=== PATIENT | male | born 1950 | race Caucasian/White ===

== ENCOUNTER 2018-07-26 15:32 | Outpatient (CLI) | payer OTHER ==
--- NOTE | 2018-07-27 21:18 | MRI Report ---
Reason: PAIN IN LEFT SHOULDER, CERVICALGIA Procedure Date: 07/26/2018 Accession Number: [id number] / [id number] Procedure: MRI - Shoulder LT W/O CPT Code: FULL RESULT: EXAM: LEFT SHOULDER MRI WITHOUT CONTRAST EXAM DATE: 07/26/2018 03:47 PM. CLINICAL HISTORY: Pain in left shoulder, cervicalgia. COMPARISON: None. TECHNIQUE: Limited 3 plane localizing sequence and single axial PD fat saturation sequence only obtained. Patient unable to complete the exam due to pain. FINDINGS: Significantly limited evaluation due to single axial sequence only. Bones: No gross fracture visualized. Joints: At least mild acromioclavicular degenerative change. Shallow cartilage loss at the glenohumeral joint. Small glenohumeral joint effusion. At least degenerative fraying posterior superior labrum. Ill-defined edema in the region of the joint capsule of the axillary recess. Musculature: No gross fatty atrophy. No focal edema. Significantly limited evaluation of the rotator cuff tendons. Edema and likely tearing partially visualized at the distal supraspinatus and infraspinatus tendons. Moderate subscapularis tendinopathy with at least partial-thickness undersurface tearing at the central fibers. Small amount of fluid in the biceps tendon sheath. Other: Subcutaneous soft tissues unremarkable. IMPRESSION: 1. Significantly limited evaluation due to single diagnostic sequence only. Recommend repeat examination with sedation. 2. Moderate subscapularis tendinopathy with at least partial-thickness undersurface tear mid fibers, incompletely evaluated. 3. Suggestion of tendinopathy and tearing at the supraspinatus and infraspinatus tendons, incompletely evaluated. 4. At least degenerative fraying posterior superior labrum, incompletely evaluated. [facility] MUSCULOSKELETAL RADIOLOGY SECTION
== END 2018-07-26 15:33 | disposition home or self-care (01) ==
LOC: DI 15:32
PROVIDERS: ATTEND Nurse Practitioner Family
DX: S46.812A Strain of other muscles, fascia and tendons at shoulder and upper arm level, left arm, initial encounter (principal); M54.2 Cervicalgia

== ENCOUNTER 2019-07-04 16:58 | Emergency (ER) | payer MEDICARE, OTHER ==
--- NOTE | 2019-07-04 17:39 | ED Physician Documentation ---
PD HPI LOWER EXT INJURY - Stated complaint Stated Complaint: LT LEG INJ - Chief complaint Chief Complaint: Ext Problem - History obtained from History obtained from: Patient - History of Present Illness PD HPI LOW EXT INJURY LOCATION: Left Type of injury: Fall Timing - onset: How many days ago (3) Timing - duration: Days (3) Timing - details: Abrupt onset Pain level max: 8 Pain level now: 7 Improved by: Rest, Ice, Immobilization Worsened by: Moving, Palpating Associated symptoms: Swelling. No: Weakness, Numbness, Tingling Recently seen: Clinic (seen in clinic for same.) - Additional information Additional information: 69-year-old male tripped fell and hurt his left ankle 3 days ago. Having continued pain today. He is on Xarelto. Stopped it 2 days ago Review of Systems Constitutional: denies: Fever, Chills GI: denies: Vomiting, Diarrhea Musculoskeletal: denies: Neck pain, Back pain Neurologic: denies: Headache PD PAST MEDICAL HISTORY - Past Medical History Past Medical History: Yes Cardiovascular: Hypertension, High cholesterol, Atrial fibrillation Endocrine/Autoimmune: Type 2 diabetes - Past Surgical History Past Surgical History: Yes Ortho: Knee replacement, Carpal Tunnel surgery - Present Medications Home Medications: Ambulatory Orders Medication Instructions Recorded Confirmed Hydrocodone/Acetaminophen 1 - 2 each PO Q6H PRN #10 tablet 07/04/19 [Hydrocodon-Acetaminophen 5-325] - Allergies Allergies/Adverse Reactions: Allergies Allergy/AdvReac Type Severity Reaction Status Date / Time No Known Drug Allergies Allergy Verified 07/04/19 17:07 - Social History Does the pt smoke?: No Smoking Status: Never smoker Does the pt drink ETOH?: No Does the pt have substance abuse?: No - Immunizations Immunizations are current?: Yes - POLST Patient has POLST: No PD ED PE NORMAL - Vitals Vital signs reviewed: Yes - General General: Alert and oriented X 3, No acute distress - HEENT HEENT: Moist mucous membranes - Derm Derm: Warm and dry - Extremities Extremities: Other (LLE - ecchymosis and swelling to the lateral ankle. NVI. TTP. ) - Neuro Neuro: Alert and oriented X 3 - Psych Psych: Normal mood, Normal affect Results - Vitals Vitals: Vital Signs - 24 hr 07/04/19 07/04/19 17:07 18:57 Temperature 36.5 C Heart Rate 99 95 Respiratory 14 18 Rate Blood Pressure 142/84 H 141/100 H O2 Saturation 95 95 Oxygen O2 Source Room air - Rads (name of study) Left ankle x-ray Radiology: Prelim report reviewed, EMP read contemporaneously, See rad report (No acute bony abnormality) PD MEDICAL DECISION MAKING - ED course Complexity details: reviewed results, re-evaluated patient, considered differential, d/w patient ED course: 69-year-old male presents to the emergency department with left ankle swelling and contusion. Eliel bandage was applied for compression and placed in a postoperative shoe. We will prescribe pain medication for home. Neurovascular intact. No compartment syndrome. Patient counseled regarding signs and symptoms for which I believe and urgent re-evaluation would be necessary. Patient with good understanding of and agreement to plan and is comfortable going home at this time This document was made in part using voice recognition software. While efforts are made to proofread this document, sound alike and grammatical errors may occur. Departure - Departure Disposition: 01 Home, Self Care Clinical Impression: Contusion Qualifiers: Encounter type: initial encounter Contusion area: lower leg Laterality: left Qualified Code(s): S80.12XA - Contusion of left lower leg, initial encounter Condition: Good Instructions: ED Contusion Lower Ext Follow-Up: your,doctor in 1 week [Other] Prescriptions: Hydrocodone/Acetaminophen [Hydrocodon-Acetaminophen 5-325] 1 - 2 each PO Q6H PRN #10 tablet PRN Reason: pain Comments: Return if you worsen. Use the Eliel wrap as needed for compression. You may bear weight as tolerated. Continue to ice and elevate the area whenever possible Discharge Date/Time: 07/04/19 19:05
--- NOTE | 2019-07-04 18:25 | XRAY Report ---
Reason: fall, ankle pain Procedure Date: 07/04/2019 Accession Number: [id number] / [id number] Procedure: XR - Ankle 3 View LT CPT Code: Final Report FULL RESULT: EXAM: LEFT ANKLE RADIOGRAPHY EXAM DATE: 07/04/2019 06:02 PM. CLINICAL HISTORY: Fall, ankle pain. COMPARISON: None. TECHNIQUE: 3 views. FINDINGS: Bones: . No fractures or bone lesions. Prominent plantar heel spur. Joints: Normal. No effusion. No subluxations. The ankle mortise is normally aligned. Soft Tissues: Essential ankle soft tissue swelling. Some vascular calcifications were also seen. Small enthesophyte at the Achilles attachment onto the calcaneus. IMPRESSION: 1. No acute fractures. 2. Extensive soft tissue swelling around the ankle. 3. Significant vascular calcifications also noted. 4. Enthesophyte at the attachment of the Achilles onto the calcaneus. Prominent plantar heel spur. [facility]
[2019-07-04 18:57] VITALS: BP 141/100
[2019-07-04] MEDS ORDERED: HYDROcod/ACET 5/325 Prepack 4 PO STA (19:03)
== END 2019-07-04 19:05 | disposition home or self-care (01) ==
LOC: ED 16:58
DX: S80.12XA Contusion of left lower leg, initial encounter (principal); W01.198A Fall on same level from slipping, tripping and stumbling with subsequent striking against other object, initial encounter; Y93.89 Activity, other specified; I10 Essential (primary) hypertension; E11.9 Type 2 diabetes mellitus without complications
CPT/HCPCS: 99283; 99284

== ENCOUNTER 2019-07-09 14:27 | Outpatient (CLI) | payer MEDICARE, OTHER ==
--- NOTE | 2019-07-09 16:06 | Ultrasound Report ---
Reason: LOCALIZED SWELLING OF LEFT LOWER LEG Procedure Date: 07/09/2019 Accession Number: [id number] / [id number] Procedure: US - Duplex Ext Veins Left CPT Code: Final Report FULL RESULT: EXAM: LEFT LOWER EXTREMITY VENOUS ULTRASOUND EXAM DATE: 07/09/2019 03:40 PM. CLINICAL HISTORY: Left leg swelling. COMPARISON: None. TECHNIQUE: Real-time sonographic vascular imaging was performed by the school psychometrist through the lower extremity utilizing both color-flow and Doppler spectral analysis. Multiple textile machinery sales representative static images were saved for review. FINDINGS: Common Femoral Vein (CFV): Normal. CFV-GSV Junction: Normal. Profunda Femoral Vein (PFV): Normal. Femoral Vein (FV) Prox: Normal. Femoral Vein (FV) Mid: Normal. Femoral Vein (FV) Dist: Normal. Popliteal Vein: Normal. Posterior Tibial Veins: Normal. Peroneal Veins: Normal. Contralateral Side CFV: Normal. Other: None. IMPRESSION: No evidence for deep venous thrombosis. [facility]
--- NOTE | 2019-07-09 23:37 | XRAY Report ---
Reason: LOCALIZED SWELLING OF LEFT LOWER LEG Procedure Date: 07/09/2019 Accession Number: [id number] / [id number] Procedure: XR - Ankle 3 View LT CPT Code: Final Report FULL RESULT: EXAM: LEFT ANKLE RADIOGRAPHY. EXAM DATE: 07/09/2019 04:13 PM. CLINICAL HISTORY: Fell 1 week ago twisting ankle. Pain and swelling. COMPARISON: ANKLE 3 VIEW LT 07/04/2019 5:43 PM. TECHNIQUE: 3 views. FINDINGS: Bones: Normal. No fractures or bone lesions. Joints: Normal. No effusion. No subluxations. The ankle mortise is normally aligned. Soft Tissues: Diffuse soft tissue swelling. IMPRESSION: Normal ankle radiography. [facility]
--- NOTE | 2019-07-09 23:37 | XRAY Report ---
Reason: LOCALIZED SWELLING OF LEFT LOWER LEG Procedure Date: 07/09/2019 Accession Number: [id number] / [id number] Procedure: XR - Foot 3 View LT CPT Code: Final Report FULL RESULT: EXAM: LEFT FOOT RADIOGRAPHY. EXAM DATE: 07/09/2019 04:09 PM. CLINICAL HISTORY: Twisted left ankle in a fall 1 week ago. Pain and swelling. COMPARISON: None. TECHNIQUE: 3 views. FINDINGS: Bones: No traumatic or destructive bone abnormalities. Calcaneal enthesophytes noted. Joints: Normal. No subluxations. Soft Tissues: Soft tissue swelling over the metatarsals. IMPRESSION: No acute bony abnormalities. [facility]
== END 2019-07-09 14:28 | disposition home or self-care (01) ==
LOC: DI 14:27
PROVIDERS: ATTEND Nurse Practitioner Family
DX: M79.89 Other specified soft tissue disorders (principal)

== ENCOUNTER 2020-02-19 13:04 | Outpatient (CLI) | payer MEDICARE, OTHER ==
[2020-02-19 15:33] LABS: ALBUMIN 3.8 g/dL (3.2-5.5); BILIRUBIN,TOTAL 1.2 mg/dL (0.2-1.0); CALCIUM 9.2 mg/dL (8.5-10.3); CREATININE 1.2 mg/dL (0.6-1.2); TOTAL PROTEIN 7.7 g/dL (6.7-8.2); URIC ACID 6.8 mg/dL (2.6-7.2)
--- NOTE | 2020-02-19 16:34 | XRAY Report ---
PROCEDURE: Foot 3 View LT INDICATIONS: PAIN IN TOE OF LEFT FOOT TECHNIQUE: 3 views of the foot were acquired. COMPARISON: None FINDINGS: Bones: There is ill-defined lucency and sclerosis traversing the medial aspect of the proximal portio n of the distal phalanx of the first digit. No suspicious bony lesions. Mild joint space narrowing a nd periarticular osteophyte formation at the tibiotalar, subtalar, talonavicular, navicular cuneiform s, first tarsometatarsal, and interphalangeal joints of the digits. Calcaneal spurring. Soft tissues: No tibiotalar joint effusion. Achilles tendon appears normal. IMPRESSION: 1. Possible subacute fracture of the distal phalanx of the first digit. CT could be performed for fur ther assessment, if clinically indicated. 2. Multifocal osteoarthritis. Reviewed by: Mac Bob MD on 02/19/2020 4:32 PM PDT Approved by: Mac Bob MD on 02/19/2020 4:32 PM PDT Station ID: [id number]
== END 2020-02-19 13:05 | disposition home or self-care (01) ==
LOC: DI.S 13:04
PROVIDERS: ATTEND Physician Assistant
DX: M19.072 Primary osteoarthritis, left ankle and foot (principal)
CPT/HCPCS: 36415; 80053; 84550

== ENCOUNTER 2020-04-11 08:42 | Emergency (ER) | payer OTHER ==
--- NOTE | 2020-04-11 08:50 | ED Physician Documentation ---
PD HPI HEENT - Stated complaint Stated Complaint: MOUTH BLEEDING - History obtained from History obtained from: Patient - History of Present Illness Timing - onset: Today Timing - duration: Hours (1-2) Location: Tooth (sshad tooth extraction 6 days ago and bled mildly after it. Was doing okay and then today had onset bleeding from extraction site, brisk with dripping rate. Called dentist but no one responded to his message. Went to PMD office and then referred him here. 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 and they just referred him here.) Review of Systems Constitutional: denies: Fever, Chills Nose: denies: Rhinorrhea / runny nose, Congestion Throat: denies: Sore throat Respiratory: denies: Cough GI: denies: Abdominal Pain, Nausea, Vomiting Neurologic: denies: Generalized weakness, Near syncope Endocrine: reports: Easy bruising / bleeding PD PAST MEDICAL HISTORY - Past Medical History Cardiovascular: Hypertension, High cholesterol, Atrial fibrillation Endocrine/Autoimmune: Type 2 diabetes - Past Surgical History Past Surgical History: Yes Ortho: Knee replacement, Carpal Tunnel surgery - Present Medications Home Medications: Ambulatory Orders Medication Instructions Recorded Confirmed Hydrocodone/Acetaminophen 1 - 2 each PO Q6H PRN #10 tablet 07/04/19 [Hydrocodon-Acetaminophen 5-325] - Allergies Allergies/Adverse Reactions: Allergies Allergy/AdvReac Type Severity Reaction Status Date / Time No Known Drug Allergies Allergy Verified 04/11/20 08:49 - Social History Does the pt smoke?: No Smoking Status: Never smoker Does the pt drink ETOH?: No Does the pt have substance abuse?: No - Immunizations Immunizations are current?: Yes - POLST Patient has POLST: No PD ED PE NORMAL - Vitals Vital signs reviewed: Yes - General General: Alert and oriented X 3, No acute distress, Well developed/nourished - HEENT HEENT: Atraumatic, Other (blood soaked gauze held in mouth biting down right lower gum. Still with bleeding. ). No: Dentition benign (extraction site right lower premolar with dripping bleeding from the socket despite gauze in the area. ) - Neck Neck: Supple, no meningeal sign, No adenopathy - Cardiac Cardiac: No murmur. No: RRR (irregular with initially fast rate but stlowed to normal rate. BP good. ) - Respiratory Respiratory: Clear bilaterally - Abdomen Abdomen: Soft, Non tender - Derm Derm: Normal color, Warm and dry - Neuro Neuro: Alert and oriented X 3, No motor deficit, Normal speech Results - Vitals Vitals: Vital Signs - 24 hr 04/11/20 04/11/20 08:47 10:30 Temperature 36.6 C 36.6 C Heart Rate 134 H 71 Respiratory 20 18 Rate Blood Pressure 136/104 H 123/93 H O2 Saturation 98 96 Oxygen O2 Source Room air - Labs Labs: Laboratory Tests 04/11/20 09:26 WBC 8.5 RBC 4.65 L Hgb 15.3 Hct 43.7 MCV 94.0 MCH 32.9 H MCHC 35.0 RDW 12.6 Plt Count 202 MPV 9.6 Neut # (Auto) 6.2 Lymph # (Auto) 1.4 L [place] # (Auto) 0.7 Eos # (Auto) 0.1 Baso # (Auto) 0.1 Absolute Nucleated RBC 0.00 Nucleated RBC % 0.0 PD MEDICAL DECISION MAKING - ED course Complexity details: considered differential (injected the socket with lido/epi and then placed cotton balls with TXA in the area (had him bite down with gauze). This stopped the bleeding/ down to minimal oozing. Monsels solution and hand held cautery used to stop the bleeding. ), d/w patient Departure - Departure Disposition: 01 Home, Self Care Clinical Impression: Surgical wound hemorrhage after dental procedure Condition: Stable Record reviewed to determine appropriate education?: Yes Follow-Up: Naman Villegas MD [Primary Care Provider] - Comments: Hold your Xarelto today. Resume it tomorrow if you are not oozing or bleeding still. Periodically keep pressure with gauze or cotton balls onto the extraction site through the day today. Follow-up with your dentist later today for able to see him. There may be some slight oozing this morning and afternoon at times. Return if significant bleeding again or follow-up with your dentist. Discharge Date/Time: 04/11/20 10:47
[2020-04-11] MEDS ORDERED: LIDOCAINE 1%-EPI 1:100000 20 ML MDV SUBQ STA (09:06)
[2020-04-11] MEDS ORDERED: TRANEXAMIC ACID 1,000 MG/10 ML VIAL NAS STA (09:06)
[2020-04-11 09:32] LABS: BASOPHILS # (AUTO) 0.1 10^3/uL (0.0-0.1); BASOPHILS % (AUTO) 0.7 %; EOSINOPHILS # (AUTO) 0.1 10^3/uL (0.0-0.7); EOSINOPHILS % (AUTO) 0.7 %; HGB - HEMOGLOBIN 15.3 g/dL (14.0-18.0); LYMPHOCYTES # (AUTO) 1.4 10^3/uL (1.5-3.5); LYMPHOCYTES % (AUTO) 16.8 %; MEAN CORPUSCULAR HEMOGLOBIN 32.9 pg (27.0-31.0); MEAN PLATELET VOLUME 9.6 fL (7.4-11.4); MONOCYTES # (AUTO) 0.7 10^3/uL (0.0-1.0); NEUTROPHILS # (AUTO) 6.2 10^3/uL (1.5-6.6); NEUTROPHILS % (AUTO) 73.4 %; PLT - PLATELET COUNT 202 10^3/uL (130-450); RED BLOOD COUNT 4.65 10^6/uL (4.70-6.10); RED CELL DISTRIBUTION WIDTH 12.6 % (12.0-15.0); WHITE BLOOD COUNT 8.5 x10^3/uL (4.8-10.8)
[2020-04-11 10:47] VITALS: BP 123/93
== END 2020-04-11 10:47 | disposition home or self-care (01) ==
LOC: ED 08:42
DX: K91.840 Postprocedural hemorrhage of a digestive system organ or structure following a digestive system procedure (principal); Y84.8 Other medical procedures as the cause of abnormal reaction of the patient, or of later complication, without mention of misadventure at the time of the procedure; I10 Essential (primary) hypertension; I48.91 Unspecified atrial fibrillation; E11.9 Type 2 diabetes mellitus without complications; Z79.01 Long term (current) use of anticoagulants
CPT/HCPCS: 36415; 85025; 99282; 99283

== ENCOUNTER 2021-07-28 10:06 | Inpatient (IN) | payer OTHER ==
--- NOTE | 2021-07-28 10:32 | ED Physician Documentation ---
PD HPI DYSPNEA - Stated complaint Stated Complaint: SOA/CONGESTION - Chief complaint Chief Complaint: Resp - History obtained from History obtained from: Patient - Additional information Additional information: 71-year-old gentleman has been sick for about 5 days initially with sinus congestion and sore throat now with productive cough and yellow sputum and worsening shortness of breath now with any exertion at all. He has been COVID vaccinated. His physician called in a prescription for antibiotics for presumed infection yesterday without relief. Per , his edema is worse than usual, but patient says it is chronic. Per it was augmentin yesterday AM. Had negative home covid test 2 days ago. Review of Systems Ten Systems: 10 systems reviewed and negative Constitutional: denies: Fever, Chills Nose: reports: Rhinorrhea / runny nose, Congestion Throat: reports: Sore throat Respiratory: reports: Dyspnea, Cough GI: denies: Abdominal Pain, Nausea, Vomiting PD PAST MEDICAL HISTORY - Past Medical History Cardiovascular: Hypertension, High cholesterol, Atrial fibrillation Endocrine/Autoimmune: Type 2 diabetes - Past Surgical History Past Surgical History: Yes Ortho: Knee replacement, Carpal Tunnel surgery - Present Medications Home Medications: Ambulatory Orders Medication Instructions Recorded Confirmed Hydrocodone/Acetaminophen 1 - 2 each PO Q6H PRN #10 tablet 07/04/19 [Hydrocodon-Acetaminophen 5-325] - Allergies Allergies/Adverse Reactions: Allergies Allergy/AdvReac Type Severity Reaction Status Date / Time No Known Drug Allergies Allergy Verified 07/28/21 10:18 - Social History Does the pt smoke?: No Smoking Status: Never smoker Does the pt drink ETOH?: No Does the pt have substance abuse?: No - Immunizations Immunizations are current?: Yes - POLST Patient has POLST: No PD ED PE NORMAL - Vitals Vital signs reviewed: Yes (Hypoxic, tachypenic) - General General: Alert and oriented X 3, Other (audible rhonchi from a distance, slight labored breathing) - HEENT HEENT: PERRL, EOMI, Pharynx benign - Neck Neck: Supple, no meningeal sign, No bony TTP - Cardiac Cardiac: RRR, No murmur - Respiratory Respiratory: Other (Mild tachypnea, speaking in full sentences. Rhonchorous and wheezy throughout.) - Abdomen Abdomen: Non tender - Back Back: No CVA TTP, No spinal TTP - Derm Derm: Normal color, Warm and dry - Extremities Extremities: Other (Mild pitting pedal edema, symmetric. Patient states this is chronic.) - Neuro Neuro: Alert and oriented X 3, Normal speech - Psych Psych: Normal mood, Normal affect Results - Vitals Vitals: Vital Signs - 24 hr 07/28/21 07/28/21 07/28/21 10:12 10:17 10:47 Temperature 36.4 C L Heart Rate 99 103 H 93 Respiratory 36 H 20 19 Rate Blood Pressure 161/87 H 166/113 H 147/88 H O2 Saturation 81 L 93 94 07/28/21 07/28/21 07/28/21 10:50 11:17 11:30 Temperature Heart Rate 90 78 83 Respiratory 26 H 19 16 Rate Blood Pressure 147/88 H 140/87 H O2 Saturation 97 94 Oxygen O2 Source Nasal cannula Oxygen Flow Rate 6 - EKG (time done) 1108 Rate: Rate (enter#) (89) Rhythm: Atrial fibrillation [place]: Normal QRS: Low voltage Ischemia: Non specific changes - Labs Labs: Laboratory Tests 07/28/21 07/28/21 07/28/21 10:25 10:25 10:25 WBC 11.5 H RBC 4.57 L Hgb 15.3 Hct 43.4 MCV 95.0 H MCH 33.5 H MCHC 35.3 RDW 12.8 Plt Count 219 MPV 9.9 Neut # (Auto) 10.0 H Lymph # (Auto) 0.5 L [place] # (Auto) 1.0 Eos # (Auto) 0.0 Baso # (Auto) 0.0 Absolute Nucleated RBC 0.00 Nucleated RBC % 0.0 VBG pH VBG pCO2 VBG pO2 VBG HCO3 VBG Total CO2 VBG O2 Saturation VBG Base Excess Sodium 128 L Potassium 4.1 Chloride 93 L Carbon Dioxide 21 Anion Gap 14.0 H BUN 17 Creatinine 0.9 Estimated GFR (MDRD) 83 L Glucose 241 H Lactic Acid Calcium 9.0 Phosphorus 2.7 Magnesium 1.5 L Total Bilirubin 1.7 H AST 31 ALT 30 Alkaline Phosphatase 50 Troponin I High Sens 42.6 H* B-Natriuretic Peptide Total Protein 8.3 H Albumin 4.3 Globulin 4.0 Albumin/Globulin Ratio 1.1 Nasal Adenovirus (PCR) Nasal B. parapertussis DNA (PCR) Nasal Coronavir 229E PCR Nasal Coronavir HKU1 PCR Nasal Coronavir NL63 PCR Nasal Coronavir OC43 PCR Nasal Enterovir/Rhinovir PCR Nasal Influenza B PCR Nasal Influenza A PCR Nasal Parainfluen 1 PCR Nasal Parainfluen 2 PCR Nasal Parainfluen 3 PCR Nasal Parainfluen 4 PCR Nasal RSV (PCR) Nasal B.pertussis DNA PCR Nasal C.pneumoniae (PCR) Rajeev Human Metapneumo PCR Nasal M.pneumoniae (PCR) Nasal SARS-CoV-2 (PCR) 07/28/21 07/28/21 07/28/21 10:25 10:25 10:25 WBC RBC Hgb Hct MCV MCH MCHC RDW Plt Count MPV Neut # (Auto) Lymph # (Auto) [place] # (Auto) Eos # (Auto) Baso # (Auto) Absolute Nucleated RBC Nucleated RBC % VBG pH 7.387 VBG pCO2 38.4 L VBG pO2 56.1 H VBG HCO3 22.6 L VBG Total CO2 23.7 L VBG O2 Saturation 89.2 H VBG Base Excess -2.0 Sodium Potassium Chloride Carbon Dioxide Anion Gap BUN Creatinine Estimated GFR (MDRD) Glucose Lactic Acid 2.3 H Calcium Phosphorus Magnesium Total Bilirubin AST ALT Alkaline Phosphatase Troponin I High Sens B-Natriuretic Peptide 308 H Total Protein Albumin Globulin Albumin/Globulin Ratio Nasal Adenovirus (PCR) Nasal B. parapertussis DNA (PCR) Nasal Coronavir 229E PCR Nasal Coronavir HKU1 PCR Nasal Coronavir NL63 PCR Nasal Coronavir OC43 PCR Nasal Enterovir/Rhinovir PCR Nasal Influenza B PCR Nasal Influenza A PCR Nasal Parainfluen 1 PCR Nasal Parainfluen 2 PCR Nasal Parainfluen 3 PCR Nasal Parainfluen 4 PCR Nasal RSV (PCR) Nasal B.pertussis DNA PCR Nasal C.pneumoniae (PCR) Rajeev Human Metapneumo PCR Nasal M.pneumoniae (PCR) Nasal SARS-CoV-2 (PCR) 07/28/21 10:27 WBC RBC Hgb Hct MCV MCH MCHC RDW Plt Count MPV Neut # (Auto) Lymph # (Auto) [place] # (Auto) Eos # (Auto) Baso # (Auto) Absolute Nucleated RBC Nucleated RBC % VBG pH VBG pCO2 VBG pO2 VBG HCO3 VBG Total CO2 VBG O2 Saturation VBG Base Excess Sodium Potassium Chloride Carbon Dioxide Anion Gap BUN Creatinine Estimated GFR (MDRD) Glucose Lactic Acid Calcium Phosphorus Magnesium Total Bilirubin AST ALT Alkaline Phosphatase Troponin I High Sens B-Natriuretic Peptide Total Protein Albumin Globulin Albumin/Globulin Ratio Nasal Adenovirus (PCR) NOT DETECTED Nasal B. parapertussis DNA (PCR) NOT DETECTED Nasal Coronavir 229E PCR NOT DETECTED Nasal Coronavir HKU1 PCR NOT DETECTED Nasal Coronavir NL63 PCR NOT DETECTED Nasal Coronavir OC43 PCR NOT DETECTED Nasal Enterovir/Rhinovir PCR DETECTED A Nasal Influenza B PCR NOT DETECTED Nasal Influenza A PCR NOT DETECTED Nasal Parainfluen 1 PCR NOT DETECTED Nasal Parainfluen 2 PCR NOT DETECTED Nasal Parainfluen 3 PCR NOT DETECTED Nasal Parainfluen 4 PCR NOT DETECTED Nasal RSV (PCR) NOT DETECTED Nasal B.pertussis DNA PCR NOT DETECTED Nasal C.pneumoniae (PCR) NOT DETECTED Rajeev Human Metapneumo PCR NOT DETECTED Nasal M.pneumoniae (PCR) NOT DETECTED Nasal SARS-CoV-2 (PCR) NOT DETECTED PD MEDICAL DECISION MAKING - ED course ED course: 71-year-old gentleman presents with some respiratory distress and profound hypoxemia with sats in the low 80s on room air. His history is consistent with that of a viral syndrome and he is quite rhonchorous here with hypoxemia. He does have some evidence of fluid overload. Found to be positive for rhinovirus here with modest elevation of his white blood cell count and modestly elevated troponin but with no chest pain and also modestly elevated BNP. He was administered IV antibiotics after blood cultures and some IV Lasix. Spoke with Dr. Conklin for admission at 11:49 AM and she requests that we order an echo as the historian research assistant will not be her much longer today. - Critical Care Time(min): 35 Time Includes: Direct patient care, Review records, Reassess patient, Document care, Coordinate care, Medical consult, Family consult for tx dec Data interpretation: Labs, Pulse ox Procedures included in critical care time: Peripheral IV Procedures excluded from critical care time: EKG Departure - Departure Disposition: 66 [facility] DC/Xfer Clinical Impression: New onset a-fib, Congestive heart failure, Pneumonia Condition: Serious Discharge Date/Time: 07/28/21 12:50
[2021-07-28] MEDS ORDERED: IPRATROPIUM/ALBUTEROL 3 ML NEB INH STA (10:34)
[2021-07-28 10:41] LABS: BASOPHILS % (AUTO) 0.3 %; EOSINOPHILS % (AUTO) 0.2 %; HCT - HEMATOCRIT 43.4 % (42.0-52.0); HGB - HEMOGLOBIN 15.3 g/dL (14.0-18.0); LYMPHOCYTES # (AUTO) 0.5 10^3/uL (1.5-3.5); MEAN CORPUSCULAR HEMOGLOBIN 33.5 pg (27.0-31.0); MEAN CORPUSCULAR HGB CONC 35.3 g/dL (32.0-36.0); MEAN PLATELET VOLUME 9.9 fL (7.4-11.4); MONOCYTES % (AUTO) 8.4 %; NEUTROPHILS % (AUTO) 86.7 %; PLT - PLATELET COUNT 219 10^3/uL (130-450); RED BLOOD COUNT 4.57 10^6/uL (4.70-6.10); RED CELL DISTRIBUTION WIDTH 12.8 % (12.0-15.0); WHITE BLOOD COUNT 11.5 x10^3/uL (4.8-10.8)
[2021-07-28 10:49] LABS: VBG HCO3 22.6 mmol/L (23-28); VBG PCO2 38.4 mmHg (41-51); VBG PH 7.387 (7.31-7.41); VBG PO2 56.1 mmHg (25-47); VBG TOTAL CO2 23.7 mmol/L (24-29)
[2021-07-28 10:50] LABS: VBG OXYGEN SATURATION 89.2 % (60-80)
[2021-07-28 10:53] LABS: LACTIC ACID, VENOUS 2.3 mmol/L (0.5-2.2)
[2021-07-28 11:02] LABS: ALBUMIN 4.3 g/dL (3.2-5.5); ALBUMIN/GLOBULIN RATIO 1.1 (1.0-2.2); BILIRUBIN,TOTAL 1.7 mg/dL (0.2-1.0); CREATININE 0.9 mg/dL (0.6-1.2); MAGNESIUM 1.5 mg/dL (1.7-2.8); PHOSPHORUS 2.7 mg/dL (2.5-4.6); POTASSIUM 4.1 mmol/L (3.5-5.0); TOTAL PROTEIN 8.3 g/dL (6.7-8.2)
--- NOTE | 2021-07-28 11:03 | XRAY Report ---
PROCEDURE: Chest 1 View X-Ray INDICATIONS: dyspnea TECHNIQUE: One view of the chest was acquired. COMPARISON: Dyspnea FINDINGS: SUPPORT DEVICES: None. LUNGS/PLEURA: Mildly prominent interstitial markings. No focal consolidation, pleural effusion or spa ce-occupying pneumothorax. MEDIASTINUM: The cardiomediastinal silhouette is within normal limits. BONES/SOFT TISSUES: No acute abnormality. IMPRESSION: 1.Mild pulmonary edema versus chronic interstitial change. Reviewed by: Chris Jernigan MD on 07/28/2021 11:01 AM [facility] Approved by: Chris Jernigan MD on 07/28/2021 11:01 AM [facility] Station ID: [id number]
[2021-07-28 11:33] LABS: B. PARAPERTUSSIS- RESP PCR PAN NOT DETECTED; B. PERTUSSIS- RESP PCR PANEL NOT DETECTED; C. PNEUMONIAE- RESP PCR PANEL NOT DETECTED; CORONAVIRUS 229E-RESP PCR NOT DETECTED; CORONAVIRUS HKU1-RESP PCR NOT DETECTED; CORONAVIRUS NL63-RESP PCR NOT DETECTED; CORONAVIRUS OC43-RESP PCR NOT DETECTED; HUMAN METAPNEUMOVIRUS NOT DETECTED; INFLUENZA A- RESP PCR PANEL NOT DETECTED; INFLUENZA B - RESP PCR PANEL NOT DETECTED; M. PNEUMONIAE- RESP PCR PANEL NOT DETECTED; PARAINFLUENZA VIRUS 1 NOT DETECTED; PARAINFLUENZA VIRUS 2 NOT DETECTED; PARAINFLUENZA VIRUS 3 NOT DETECTED; PARAINFLUENZA VIRUS 4 NOT DETECTED; RHINOVIRUS/ENTEROVIRUS DETECTED; RSV- RESP PCR PANEL NOT DETECTED; SARS-CoV-2 -RESP PCR PANEL NOT DETECTED
[2021-07-28] MEDS ORDERED: cefTRIAXone 2 GM in SODIUM CHLORIDE 0.9% MINIBAG 100 ML IV STA (11:34)
[2021-07-28] MEDS ORDERED: ASPIRIN CHEW 81 MG TABLET PO STA (11:34)
[2021-07-28] MEDS ORDERED: AZITHROMYCIN INJ 500 MG in SODIUM CHLORIDE 0.9% 250 ML IV STA (11:34)
[2021-07-28] MEDS ORDERED: FUROSEMIDE 40 MG/4 ML VIAL IVP STA (11:35)
[2021-07-28] MEDS ORDERED: HYDROcod/ACETAM 5/325 MG TABLET PO PRN (11:54)
[2021-07-28] MEDS ORDERED: ACETAMINOPHEN 325 MG TABLET PO PRN (11:54)
[2021-07-28] MEDS ORDERED: ONDANSETRON 4 MG/2 ML VIAL IVP PRN (11:54)
--- NOTE | 2021-07-28 12:09 | HISTORY & PHYSICAL EXAMINATION ---
Chief Complaint - Chief Complaint Chief Complaint: dyspnea History of Present Illness - Admitted From Admitted From:: Medical floor - History Obtained From Records Reviewed: [facility], and ER notes History obtained from: pt Exam Limitations: now - History of Present Illness HPI Comment/Other: 71-year-old male with A past medical history significant noted for hypertension, hyperlipidemia, atrial fibrillation, diabetes who present ER complain of shortness of breath. Pt report he feel shortness of breath for couple of days. He has been sick with cough and difficult breathing for about one week. Initially he believed he had sinus congestion and sore throat. But he continue to have productive cough and yellowish sputum and worsening shortness of breath. He report he was difficult to walk to bathroom because of shortness of breath. He wanted to see his primary care, he is prescribed antibiotics to treat for his infection. He has been COVID vaccinated three times. He Had negative home covid test 2 days ago. Pt also report orthopnea. he report he was difficult to finish his ECHO study because of laying down at bed. pt report his bilateral leg present significant edema when he sit slight long time. Patient reported he taken Metformin for his diabetic management. Pt Denies fever, chill, chest pain. Patient report he stopped cigarette smoking about 30 years ago, he drink alcohol 1 beer and 4-5 glasses of wine daily. Patient is afebrile, but patient present tachypnea, tachycardia, with 81% oxygen saturation on room air in ER. In routine laboratory testing in ER, patient significantly has WBC 11.5, sodium 128, glucose 241, troponin 43, BNP 308. Chest x-ray review mild pulmonary edema plus chronic interstitial change. Discussed the care goal with the patient, patient hope to have full code. History - Past Medical History Cardiovascular: reports: Hypertension, High cholesterol, Atrial fibrillation Endocrine/Autoimmune: reports: Type 2 diabetes - Past Surgical History Ortho: reports: Knee replacement, Carpal Tunnel surgery - Family & Social History Family History: Mother: , Father: Family History Comment/Other: pt report he is unknown medical hx about his parents Social History Notes: Patient report he stopped cigarette smoking about 30 years ago, he drink alcohol 1 beer and 4-5 glasses of wine daily. - POLST Patient has POLST: No Meds/Allgy - Home Medications Home Medications: Ambulatory Orders Medication Instructions Recorded Confirmed Hydrocodone/Acetaminophen 1 - 2 each PO Q6H PRN #10 tablet 07/04/19 [Hydrocodon-Acetaminophen 5-325] - Allergies Allergies/Adverse Reactions: Allergies Allergy/AdvReac Type Severity Reaction Status Date / Time No Known Drug Allergies Allergy Verified 07/28/21 10:18 Review of Systems - Constitutional Constitutional: denies: Fever, Chills - Eyes Eyes: denies: Pain - Ears, Nose & Throat Ears, Nose & Throat: denies: Ear pain - Cardiovascular Cariovascular: reports: Exertional dyspnea, Decr. exercise tolerance, Orthopnea. denies: Irregular heart rate, Palpitations, Chest pain - Respiratory Respiratory: reports: Cough, Sputum production, Orthopnea, SOB at rest, SOB with exertion - Gastrointestinal Gastrointestinal: denies: Abdominal pain, Diarrhea, Nausea, Vomiting - Musculoskeletal Musculoskeletal: denies: Muscle pain - Integumentary Integumentary: denies: Rash - Neurological Neurological: denies: General weakness, Focal weakness, Headache, Dizziness, Numbness, Seizures, Incoordination, Slurred speech Prior Level of Functionality: full independently at home Exam - Vital Signs Vital Signs: Vital Signs x48h Temp Pulse Resp BP Pulse Ox 07/28/21 12:00 91 24 153/98 H 92 07/28/21 11:30 83 16 140/87 H 94 07/28/21 11:17 78 19 147/88 H 97 07/28/21 10:50 90 26 H 07/28/21 10:47 93 19 147/88 H 94 07/28/21 10:17 103 H 20 166/113 H 93 07/28/21 10:12 36.4 C L 99 36 H 161/87 H 81 L - Physical Exam General Appearance: positive: No acute distress, Alert. negative: Lethargic Eyes Bilateral: positive: Normal inspection, No lid inflammation ENT: positive: ENT inspection nml, No signs of dehydration. negative: Purulent nasal drainage Neck: positive: Nml inspection, Trachea midline. negative: Tracheal deviation Respiratory: positive: Chest non-tender, No respiratory distress. negative: Wheezes, Rales Cardiovascular: positive: Regular rate & rhythm, No murmur. negative: Tachycardia, Bradycardia, Systolic murmur Peripheral Pulses: positive: 2+ Abdomen: positive: Non-tender, Nml bowel sounds, No distention. negative: Tenderness Back: positive: Nml inspection Skin: positive: Color nml, Warm, Dry. negative: Cyanosis Extremities: positive: Non-tender, Full ROM, Pedal edema Neurologic/Psychiatric: positive: Oriented x3, Motor nml, Sensation nml. negative: Weakness, Sensory loss, Facial droop, Slurred/abnml speech, Depressed mood/affect Conclusion/Plan - Problem List (1) CHF exacerbation Conclusion/Plan: pt present significant shortness of breath on exertion, Bilaterally lower extremity edema, significant orthopnea. he is even difficult to finish ECHO study when he was lay down at the bed. ECHO study reveal severe abnormal right pressure with preserved EF. pt likely present diastolic heart failure with acute exacerbation. Pt was already given Lasix at ER and at medical floor, but pt had elevated Lactic acid level. However VBG study show pt had normal PH. At this point we hold Lasix, recheck Lactic acid level, daily weight, cardiac diet, order tele and vital closely monitor pt (2) Elevated lactic acid level Conclusion/Plan: pt had elevated lactic aced level 3.4, and elevated WBC, pt present significant shortness of breath, pt report cough with yellowish sputum. ER was already started antibiotics for pt, we will continue antibiotics for treatment of pneumonia, which is likely the cause of elevated lactic acid. IN VBG study, pt had normal arrange PH. (3) Pneumonia Conclusion/Plan: pt present significant shortness of breath, and report cough with yellowing sputum. Now pt had 95% on 5 liter of O2. lab test show elevated WBC and elevated lactic acid level. pt has negative for Covid 19. we will continue antibiotics treatment, supplement of O2 as needed. Add probiotics. (4) Shortness of breath Conclusion/Plan: This is pt's chief complain. it seems combination of pt's acute CHF exacerbation, pulmonary edema and pneumonia infection. VBG study reveal normal PH, unremarkable now. but pt require to have 5 liter of O2 and has 95% O2 sats. IF pt's shortness of breath worsen or require more supplement O2, we may have ABG study for pt, then followup, continue antibiotics, continue supplement of O2 now, closely vital sign monitor pt. (5) Afib Conclusion/Plan: slight elevated HR at 90-100 arrange at the admission, and pt present slight elevated BP, add low dosage of metoprolol, continue tele monitor and resume home Xarelto. pt report he took Xarelto at home. (6) Alcohol abuse Conclusion/Plan: pt report he drunk one beer and 4-5 glasses of wine daily. he denies hx of alcohol withdrawal. we add and Vitamin B1. we will closely monitor pt. because drunk daily with significant amount of alcohol, consider [facility] protocol monitor pt as well. (7) Diabetes Conclusion/Plan: Patient report he has history of diabetic type II, he take Metformin in the home but no insulin. We will start with sliding scale, glucose check, and hypoglycemia protocol (8) HTN (hypertension) Conclusion/Plan: Stable, we will resume patient's home blood pressure medicine after confirmed by pharmacy (9) Obesity Conclusion/Plan: Patient had a BMI of 46.3. He reported he is working on loss of his weight. Encourage patient safely loss of his weight (10) Elevated troponin Conclusion/Plan: Patient had slightly elevated troponin 43, patient denying chest pain, EKG did not show ischemic change. will Repeat troponin, continue telemetry and vital signs closely monitor patient - Lab Results Fish Bones: 07/28/21 10:25 07/28/21 10:25 Core Measures - Anticipated LOS I expect patient to be DC'd or transferred within 96 hours.: Yes - DVT/VTE - Prophylaxis VTE/DVT Device ordered at admit?: Yes VTE/DVT Prophylaxis med ordered at admit?: Yes
[2021-07-28 13:21] LABS: ESTIMATED AVERAGE GLUCOSE 174 mg/dL (70-100); HEMOGLOBIN A1c% 7.7 % (4.27-6.07)
[2021-07-28] MEDS ORDERED: LORazepam 2 MG/ML VIAL IVP PRN (13:41)
[2021-07-28] MEDS ORDERED: MAGNESIUM SULFATE 2 GRAM 2 GM/50 ML BAG IV ONE (13:44)
[2021-07-28] MEDS ORDERED: FUROSEMIDE 20 MG/2 ML VIAL IVP SCH (14:00)
[2021-07-28] MEDS: THIAMINE 100 MG TABLET PO SCH (14:30)
[2021-07-28] MEDS ORDERED: IPRATROPIUM/ALBUTEROL 3 ML NEB INH PRN (14:37)
[2021-07-28] MEDS ORDERED: ALBUTEROL NEB 2.5 MG/3 ML INH PRN (14:37)
[2021-07-28] MEDS ORDERED: FUROSEMIDE 20 MG/2 ML VIAL IVP ONE (15:00)
[2021-07-28 15:09] LABS: LACTIC ACID, VENOUS 3.4 mmol/L (0.5-2.2)
[2021-07-28] MEDS: SODIUM CHLORIDE FLUSH 0.9% 10 ML SYRINGE IVP SCH (16:06)
[2021-07-28] MEDS: INSULIN ASPART 300 UNIT/3 ML PEN SUBQ SCH ×2 (16:59→21:19)
[2021-07-28] MEDS: SACCHAROMYCES BOULARDII 250 MG CAPSULE PO SCH (17:00)
[2021-07-28] MEDS ORDERED: RIVAROXABAN 15 MG TABLET PO SCH (17:00)
[2021-07-28] MEDS ORDERED: APIXABAN 5 MG TABLET PO SCH (21:00)
[2021-07-28] MEDS: METOPROLOL TARTRATE 25 MG TABLET PO SCH (21:27)
[2021-07-28] MEDS ORDERED: chlordiazePOXIDE 25 MG CAPSULE PO SCH (22:00)
[2021-07-28] MEDS: TEMAZEPAM 15 MG CAPSULE PO PRN (22:39)
[2021-07-28] MEDS: chlordiazePOXIDE 25 MG CAPSULE PO SCH (22:41)
[2021-07-29] MEDS: SODIUM CHLORIDE FLUSH 0.9% 10 ML SYRINGE IVP SCH ×4 (00:11→23:45)
[2021-07-29 05:13] LABS: BASOPHILS % (AUTO) 0.3 %; EOSINOPHILS # (AUTO) 0.1 10^3/uL (0.0-0.7); EOSINOPHILS % (AUTO) 0.9 %; HCT - HEMATOCRIT 40.9 % (42.0-52.0); HGB - HEMOGLOBIN 14.2 g/dL (14.0-18.0); LYMPHOCYTES # (AUTO) 0.8 10^3/uL (1.5-3.5); LYMPHOCYTES % (AUTO) 8.6 %; MEAN CORPUSCULAR HGB CONC 34.7 g/dL (32.0-36.0); MEAN CORPUSCULAR VOLUME 95.1 fL (80.0-94.0); MEAN PLATELET VOLUME 10.1 fL (7.4-11.4); MONOCYTES # (AUTO) 1.1 10^3/uL (0.0-1.0); MONOCYTES % (AUTO) 11.4 %; NEUTROPHILS # (AUTO) 7.7 10^3/uL (1.5-6.6); NEUTROPHILS % (AUTO) 78.5 %; PLT - PLATELET COUNT 211 10^3/uL (130-450); RED CELL DISTRIBUTION WIDTH 12.9 % (12.0-15.0); WHITE BLOOD COUNT 9.8 x10^3/uL (4.8-10.8)
[2021-07-29 05:24] LABS: CALCIUM 8.5 mg/dL (8.5-10.3); CREATININE 0.9 mg/dL (0.6-1.2); MAGNESIUM 1.6 mg/dL (1.7-2.8); POTASSIUM 3.3 mmol/L (3.5-5.0)
[2021-07-29 05:33] LABS: CHOL/HDL RATIO 2.3 (<5.0); CHOLESTEROL 133 mg/dL; HDL CHOLESTEROL 58 mg/dL; LDL CHOLESTEROL,CALCULATED 61 mg/dL; LDL/HDL RATIO 1.1 (<3.6); TRIGLYCERIDES 70 mg/dL; VLDL CHOLESTEROL 14 mg/dL
[2021-07-29] MEDS ORDERED: FUROSEMIDE 20 MG/2 ML VIAL IVP SCH (06:00)
[2021-07-29] MEDS: PANTOPRAZOLE 40 MG TABLET PO SCH (06:20)
[2021-07-29] MEDS: INSULIN ASPART 300 UNIT/3 ML PEN SUBQ SCH ×4 (07:56→20:52)
[2021-07-29] MEDS: SACCHAROMYCES BOULARDII 250 MG CAPSULE PO SCH ×2 (07:57→17:13)
[2021-07-29] MEDS ORDERED: FUROSEMIDE 40 MG/4 ML VIAL IVP SCH (09:00)
[2021-07-29] MEDS ORDERED: cefTRIAXone 1 GM in SODIUM CHLORIDE 0.9% MINIBAG 100 ML IV SCH (09:00)
[2021-07-29] MEDS ORDERED: cefTRIAXone 2 GM in SODIUM CHLORIDE 0.9% MINIBAG 100 ML IV SCH (09:00)
[2021-07-29] MEDS: PRENATAL VITAMIN TABLET PO SCH (09:23)
[2021-07-29] MEDS: THIAMINE 100 MG TABLET PO SCH (09:23)
[2021-07-29] MEDS: METOPROLOL TARTRATE 25 MG TABLET PO SCH ×2 (09:23→20:10)
[2021-07-29] MEDS: AZITHROMYCIN INJ 500 MG in SODIUM CHLORIDE 0.9% 250 ML IV SCH (09:25)
[2021-07-29] MEDS: SODIUM CHLORIDE FLUSH 0.9% 10 ML SYRINGE IVP PRN (09:26)
[2021-07-29] MEDS: chlordiazePOXIDE 25 MG CAPSULE PO SCH ×2 (10:16→21:02)
[2021-07-29] MEDS: cefTRIAXone 2 GM in SODIUM CHLORIDE 0.9% MINIBAG 100 ML IV SCH (11:00)
[2021-07-29] MEDS: guaiFENesin 600 MG TABLET PO SCH ×2 (11:48→20:10)
[2021-07-29] MEDS ORDERED: POTASSIUM CHLORIDE 20 MEQ TABLET PO ONE (14:06)
--- NOTE | 2021-07-29 14:46 | PROVIDER PROGRESS NOTE ---
Assessment/Plan - Problem List (1) Acute diastolic (congestive) heart failure Assessment/Plan: Patient presented to the hospital on 07/28/21 with dyspnea after one week of cold like symptoms including a cough and congestion. In the ED his bedside oxygen saturation was 81% on room air. He was then place on 5L/min nasal canula and bedside oxygenation saturation improved to mid 90s. Chest x-ray showed " mild pulmonary edema versus chronic interstitial changes". Echo on 07/28/21 showed " mild left ventricle hypertorphy with EF 55-65%. Unable to determine diastolic function due to arrhythmia. Right ventricle enlargement, severe increased in left atrial volume index, and severe right atrial enlargement". There is no previous echo for comparison. These findings are consistent with diastolic left ventricular heart failure. Yesterday lasix was held due to elevated lactic acid. Today his lactic acid is 1.5 and BNP is down to 250 from 308 on admission. He has ronchi throughout with a strong productive cough and green/ yellow sputum. He reports continued dyspnea with activity. There is 2+ pitting edema to bilateral feet up to his knees. Plan: Start lasix 20mg IVP twice daily. Continue cardiac diet. Continue to monitor with telemetry. Continue to titrate oxygenation. (2) Cor pulmonale Assessment/Plan: Cardiac echo on 07/28/21 showed "Right ventricle enlargement and severe right atrial enlargement. Mild to moderate tricuspid regurgitation. Severe abnormal right heart pressure." The calculated PA pressure is 65mmHg. which is consistent with Cor Pulmonale. There is no previous echo for comparison. Plan: Start lasix 20mg IVP twice daily. Continue cardiac diet. Continue to monitor with telemetry. (3) Acute bronchitis Assessment/Plan: Patient presented to the hospital on 07/28/21 after 1 week of cold like symptoms that included a cough and congestion. Upon admission PCR was positive for Rhinovirus. He continues to have intermittent productive cough with green/ yellow secretions. Breaths sounds have bilateral ronchi. He is on nasal cannula at 5L/min with bedside oxygenation saturation mid 90s. 07/28/21 chest x-ray showed pulmonary edema. Plan: Continue oxygen therapy and titrate to keep oxygen saturations > 92%. Start Mucinex at 600mg PO twice daily and encourage PO hydration. (4) Afib Assessment/Plan: Patient has a history of A-fib. Upon admission to the hospital his heart rate was 90-100 in a-fib. He is unsure of home medication doses but confident that he takes Xarelto for A-fib. Metoprolol 25mg PO twice daily started on 07/28/21. Today he continues to be in afib with HR 80s. Plan: Continue Metoprolol 25mg PO twice daily. Start Eliquis 5mg PO nightly due to limited hospital availability of Xarelto. (5) Alcohol abuse Assessment/Plan: Patient has a history of alcohol abuse and reported drinking 1 beer and 5 glasses of wine daily. He denies pervious episodes of alcohol withdrawal. CIWA scores have remained 0 during hospitalization. Librium 25mg PO twice daily is ordered but patient is refusing. Plan: Continue to monitor for alcohol withdrawal for 72 hours with CIWA scoring. Continue with Thiamine and multivitamin. Consider adding prn Ativan if patient is showing signs of alcohol withdrawal. (6) Diabetes Assessment/Plan: Patient has a history of Type II DM and takes Metformin. Admission glucose was 205 with A1c 7.7. Plan: Monitor glucose before each meal and at bedtime. Continue sliding scale insulin for hyperglycemia. Continue cardiac carb control diet. (7) Hypokalemia Assessment/Plan: Patient is hypokalemic today with serum potassium of 3.3. Upon admission to the hospital his serum potassium was 4.1. Plan: Potassium Chloride 40mEQ PO x1 now. BMP to monitor trend and treat as needed. (8) Elevated troponin Assessment/Plan: Patient had elevated troponin on admission at 42.6 with a repeat troponin 44.6. He denies chest pain. EKG dose not show ischemic changes. Plan: Continue to monitor for ischemic changes with telemetry. (9) HTN (hypertension) Assessment/Plan: Patient has history of hypertension and unsure of his home medications. He knows that he takes Lisinopril but unsure of the dose. Pharmacy was contacted who stated that patient uses [facility] mail order for prescriptions and will be unable to confirm with provider until Saturday. He was started on Metoprolol 25mg PO twice daily for A-fib yesterday. Today his systolic blood pressure ranges 130s-160s. Plan: Resume home hypertension medication after it has been confirmed by pharmacy. Consider resuming Lisinopril at titrate as needed if hypertension uncontrolled. (10) Obesity Assessment/Plan: Patient has a an elevated BMI of 46. He reported to pervious provider that he is working on loosing weight. Plan: Encourage activity when dyspnea improves. Continue Carb Controlled diet. Dietitian consult to discuss healthy eating strategies. - Current Meds Current Meds: Current Medications Generic Name Dose Route Start Last Admin Trade Name Freq PRN Reason Stop Dose Admin Chlordiazepoxide HCl 25 mg 07/28/21 22:00 07/29/21 10:16 Chlordiazepoxide 25 Mg Capsule PO Not Given Q12H ARJUN Furosemide 40 mg 07/29/21 09:00 07/29/21 09:24 Furosemide 40 Mg/4 Ml Vial IVP 40 mg DAILY ARJUN Administration Guaifenesin 600 mg 07/29/21 12:00 07/29/21 11:48 Guaifenesin 600 Mg Tablet PO 600 mg BID ARJUN Administration Azithromycin 500 mg/ Sodium 250 mls @ 250 mls/hr 07/29/21 09:00 07/29/21 10:45 Chloride IV Infused DAILY ARJUN Infusion Ceftriaxone Sodium 2 gm/ 100 mls @ 200 mls/hr 07/29/21 10:00 07/29/21 11:40 Sodium Chloride IV Infused DAILY ARJUN Infusion Insulin Aspart 2 - 10 unit 07/28/21 17:00 07/29/21 11:46 Insulin Aspart 300 Unit/3 Ml Pen SUBQ 4 unit 0800,1200,1700,2100 ARJUN Administration Protocol Metoprolol Tartrate 25 mg 07/28/21 21:00 07/29/21 09:23 Metoprolol Tartrate 25 Mg Tablet PO 25 mg BID ARJUN Administration Pantoprazole Sodium 40 mg 07/29/21 07:00 07/29/21 06:20 Pantoprazole 40 Mg Tablet PO 40 mg QDAC ARJUN Administration Multivit/Folic Acid/Iron 1 tab 07/29/21 09:00 07/29/21 09:23 Vitamin Tablet PO 1 tab DAILY ARJUN Administration Saccharomyces Boulardii 250 mg 07/28/21 17:00 07/29/21 07:57 Saccharomyces Boulardii 250 Mg Capsule PO 250 mg BIDWM ARJUN Administration Sodium Chloride 10 ml 07/28/21 11:54 07/29/21 09:26 Sodium Chloride Flush 0.9% 10 Ml Syringe IVP 10 ml PRN PRN Administration NEEDED PER PROVIDER ORDERS Sodium Chloride 10 ml 07/28/21 17:00 07/29/21 08:04 Sodium Chloride Flush 0.9% 10 Ml Syringe IVP 10 ml 0100,0900,1700 ARJUN Administration Temazepam 15 mg 07/28/21 13:40 07/28/21 22:39 Temazepam 15 Mg Capsule PO 15 mg QPM PRN Administration Insomnia Thiamine HCl 100 mg 07/28/21 13:42 07/29/21 09:23 Thiamine 100 Mg Tablet PO 100 mg DAILY ARJUN Administration - Lab Result Fish Bone Diagrams: 07/29/21 04:39 07/29/21 04:39 - Additional Planning Condition/Complexity: Guarded Subjective - Subjective Patient Reports: Feeling Better (Reprots feeling "slightly better".), Shortness of Breath (Patient reports dyspnea with activity.), Other (Patient was sitting in chair eating breakfast.) Objective Vital Signs: Vital Signs - 24 hr 07/28/21 07/28/21 07/28/21 16:05 19:23 21:00 Temperature 36.7 C 36.7 C Heart Rate 96 Heart Rate [ 95 Brachial] Heart Rate [ 86 Monitoring electrodes] Heart Rate [ Radial] Respiratory 24 18 25 H Rate Blood Pressure Blood Pressure 119/74 135/87 H [Left Brachial artery] Blood Pressure [Left Radial artery] Blood Pressure [Right Brachial artery] O2 Saturation 92 95 94 07/28/21 07/29/21 07/29/21 21:27 00:08 05:43 Temperature 36.4 C L 36.6 C Heart Rate Heart Rate [ 74 Brachial] Heart Rate [ Monitoring electrodes] Heart Rate [ 50 L Radial] Respiratory 25 H 22 Rate Blood Pressure 135/87 H Blood Pressure [Left Brachial artery] Blood Pressure 142/75 H [Left Radial artery] Blood Pressure 132/85 H [Right Brachial artery] O2 Saturation 90 L 96 07/29/21 07/29/21 07/29/21 07:45 08:00 09:23 Temperature 36.6 C Heart Rate Heart Rate [ Brachial] Heart Rate [ Monitoring electrodes] Heart Rate [ Radial] Respiratory 20 Rate Blood Pressure 150/90 H Blood Pressure 150/90 H [Left Brachial artery] Blood Pressure [Left Radial artery] Blood Pressure [Right Brachial artery] O2 Saturation 95 96 07/29/21 14:15 Temperature 36.6 C Heart Rate Heart Rate [ Brachial] Heart Rate [ 89 Monitoring electrodes] Heart Rate [ Radial] Respiratory 20 Rate Blood Pressure Blood Pressure 144/85 H [Left Brachial artery] Blood Pressure [Left Radial artery] Blood Pressure [Right Brachial artery] O2 Saturation 94 Oxygen O2 Source Room air Oxygen Flow Rate 6 I&O (Last 24 Hrs): Intake and Output Totals x24h 07/27/21 07/28/21 07/29/21 23:59 23:59 23:59 Intake Total 1440 1230 Output Total 1305 1625 Balance 135 -395 General: Alert, Oriented x3, Cooperative Neuro: Alert, Oriented Times 3 Cardiovascular: Other (Regularly irregular.) Respiratory: Chest non-tender, No respiratory distress, Rhonchi, Other (Frequent productive cough) Abdomen: Normal bowel sounds, No tenderness Extremities: Other (2+ pedal edema up to bilateral knees) Skin: No rashes - Results Results: Laboratory Results WBC 9.8 x10^3/uL (4.8-10.8) 07/29/21 04:39 RBC 4.30 10^6/uL (4.70-6.10) L 07/29/21 04:39 Hgb 14.2 g/dL (14.0-18.0) 07/29/21 04:39 Hct 40.9 % (42.0-52.0) L 07/29/21 04:39 MCV 95.1 fL (80.0-94.0) H 07/29/21 04:39 MCH 33.0 pg (27.0-31.0) H 07/29/21 04:39 MCHC 34.7 g/dL (32.0-36.0) 07/29/21 04:39 RDW 12.9 % (12.0-15.0) 07/29/21 04:39 Plt Count 211 10^3/uL (130-450) 07/29/21 04:39 MPV 10.1 fL (7.4-11.4) 07/29/21 04:39 Neut # (Auto) 7.7 10^3/uL (1.5-6.6) H 07/29/21 04:39 Lymph # (Auto) 0.8 10^3/uL (1.5-3.5) L 07/29/21 04:39 [place] # (Auto) 1.1 10^3/uL (0.0-1.0) H 07/29/21 04:39 Eos # (Auto) 0.1 10^3/uL (0.0-0.7) 07/29/21 04:39 Baso # (Auto) 0.0 10^3/uL (0.0-0.1) 07/29/21 04:39 Absolute Nucleated RBC 0.00 x10^3/uL 07/29/21 04:39 Nucleated RBC % 0.0 /100WBC 07/29/21 04:39 VBG pH 7.387 (7.31-7.41) 07/28/21 10:25 VBG pCO2 38.4 mmHg (41-51) L 07/28/21 10:25 VBG pO2 56.1 mmHg (25-47) H 07/28/21 10:25 VBG HCO3 22.6 mmol/L (23-28) L 07/28/21 10:25 VBG Total CO2 23.7 mmol/L (24-29) L 07/28/21 10:25 VBG O2 Saturation 89.2 % (60-80) H 07/28/21 10:25 VBG Base Excess -2.0 mmol/L (-2 - +2) 07/28/21 10:25 Sodium 131 mmol/L (135-145) L 07/29/21 04:39 Potassium 3.3 mmol/L (3.5-5.0) L 07/29/21 04:39 Chloride 95 mmol/L (101-111) L 07/29/21 04:39 Carbon Dioxide 24 mmol/L (21-32) 07/29/21 04:39 Anion Gap 12.0 (6-13) 07/29/21 04:39 BUN 18 mg/dL (6-20) 07/29/21 04:39 Creatinine 0.9 mg/dL (0.6-1.2) 07/29/21 04:39 Estimated GFR (MDRD) 83 (>89) L 07/29/21 04:39 Glucose 169 mg/dL (70-100) H 07/29/21 04:39 POC Whole Bld Glucose 187 mg/dL (70 - 100) H 07/29/21 11:13 Estimat Average Glucose 174 mg/dL (70-100) H 07/28/21 12:18 Hemoglobin A1c % 7.7 % (4.27-6.07) H 07/28/21 12:18 Lactic Acid 1.6 mmol/L (0.5-2.2) 07/28/21 19:10 Calcium 8.5 mg/dL (8.5-10.3) 07/29/21 04:39 Phosphorus 2.7 mg/dL (2.5-4.6) 07/28/21 10:25 Magnesium 1.6 mg/dL (1.7-2.8) L 07/29/21 04:39 Total Bilirubin 1.7 mg/dL (0.2-1.0) H 07/28/21 10:25 AST 31 IU/L (10-42) 07/28/21 10:25 ALT 30 IU/L (10-60) 07/28/21 10:25 Alkaline Phosphatase 50 IU/L (42-121) 07/28/21 10:25 Troponin I High Sens 44.2 ng/L (2.3-19.7) H* 07/28/21 16:06 B-Natriuretic Peptide 250 pg/mL (5-100) H 07/29/21 04:39 Total Protein 8.3 g/dL (6.7-8.2) H 07/28/21 10:25 Albumin 4.3 g/dL (3.2-5.5) 07/28/21 10:25 Globulin 4.0 g/dL (2.1-4.2) 07/28/21 10:25 Albumin/Globulin Ratio 1.1 (1.0-2.2) 07/28/21 10:25 Triglycerides 70 mg/dL (-149) 07/29/21 04:39 Cholesterol 133 mg/dL (-199) 07/29/21 04:39 LDL Cholesterol, Calc 61 mg/dL (-129) 07/29/21 04:39 VLDL Cholesterol 14 mg/dL 07/29/21 04:39 HDL Cholesterol 58 mg/dL (60-) L 07/29/21 04:39 LDL/HDL Ratio 1.1 (<3.6) 07/29/21 04:39 Cholesterol/HDL Ratio 2.3 (<5.0) 07/29/21 04:39 Nasal Adenovirus (PCR) NOT DETECTED 07/28/21 10:27 Nasal B. parapertussis DNA (PCR) NOT DETECTED 07/28/21 10:27 Nasal Coronavir 229E PCR NOT DETECTED 07/28/21 10:27 Nasal Coronavir HKU1 PCR NOT DETECTED 07/28/21 10:27 Nasal Coronavir NL63 PCR NOT DETECTED 07/28/21 10:27 Nasal Coronavir OC43 PCR NOT DETECTED 07/28/21 10:27 Nasal Enterovir/Rhinovir PCR DETECTED A 07/28/21 10:27 Nasal Influenza B PCR NOT DETECTED 07/28/21 10:27 Nasal Influenza A PCR NOT DETECTED 07/28/21 10:27 Nasal Parainfluen 1 PCR NOT DETECTED 07/28/21 10:27 Nasal Parainfluen 2 PCR NOT DETECTED 07/28/21 10:27 Nasal Parainfluen 3 PCR NOT DETECTED 07/28/21 10:27 Nasal Parainfluen 4 PCR NOT DETECTED 07/28/21 10:27 Nasal RSV (PCR) NOT DETECTED 07/28/21 10:27 Nasal B.pertussis DNA PCR NOT DETECTED 07/28/21 10:27 Nasal C.pneumoniae (PCR) NOT DETECTED 07/28/21 10:27 Rajeev Human Metapneumo PCR NOT DETECTED 07/28/21 10:27 Nasal M.pneumoniae (PCR) NOT DETECTED 07/28/21 10:27 Nasal SARS-CoV-2 (PCR) NOT DETECTED 07/28/21 10:27 ABX Reporting Has patient been on IV antibiotics over the past 48 hours?: No
[2021-07-29] MEDS: FUROSEMIDE 20 MG/2 ML VIAL IVP SCH (15:50)
[2021-07-29] MEDS: TEMAZEPAM 15 MG CAPSULE PO PRN (20:10)
[2021-07-29] MEDS: APIXABAN 5 MG TABLET PO SCH (20:10)
[2021-07-29] MEDS ORDERED: guaiFENesin 600 MG TABLET PO SCH (21:00)
[2021-07-29] MEDS ORDERED: guaiFENesin/DEXTROMETHORPHAN 10 ML UDC PO PRN (21:37)
[2021-07-30 05:09] LABS: BASOPHILS % (AUTO) 0.5 %; EOSINOPHILS # (AUTO) 0.2 10^3/uL (0.0-0.7); HCT - HEMATOCRIT 40.9 % (42.0-52.0); HGB - HEMOGLOBIN 14.2 g/dL (14.0-18.0); LYMPHOCYTES % (AUTO) 12.5 %; MEAN CORPUSCULAR HEMOGLOBIN 33.1 pg (27.0-31.0); MEAN CORPUSCULAR HGB CONC 34.7 g/dL (32.0-36.0); MEAN CORPUSCULAR VOLUME 95.3 fL (80.0-94.0); MEAN PLATELET VOLUME 9.7 fL (7.4-11.4); MONOCYTES # (AUTO) 0.9 10^3/uL (0.0-1.0); NEUTROPHILS # (AUTO) 5.7 10^3/uL (1.5-6.6); NEUTROPHILS % (AUTO) 72.9 %; PLT - PLATELET COUNT 225 10^3/uL (130-450); RED BLOOD COUNT 4.29 10^6/uL (4.70-6.10); RED CELL DISTRIBUTION WIDTH 12.7 % (12.0-15.0); WHITE BLOOD COUNT 7.8 x10^3/uL (4.8-10.8)
[2021-07-30 05:19] LABS: CALCIUM 8.7 mg/dL (8.5-10.3); CREATININE 0.9 mg/dL (0.6-1.2); POTASSIUM 3.4 mmol/L (3.5-5.0)
[2021-07-30] MEDS: PANTOPRAZOLE 40 MG TABLET PO SCH (06:27)
[2021-07-30] MEDS: FUROSEMIDE 20 MG/2 ML VIAL IVP SCH ×2 (06:29→13:19)
[2021-07-30] MEDS: INSULIN ASPART 300 UNIT/3 ML PEN SUBQ SCH ×4 (07:52→21:14)
[2021-07-30] MEDS: SACCHAROMYCES BOULARDII 250 MG CAPSULE PO SCH ×2 (07:55→16:44)
[2021-07-30] MEDS: METOPROLOL TARTRATE 25 MG TABLET PO SCH ×2 (08:00→21:15)
[2021-07-30] MEDS: guaiFENesin 600 MG TABLET PO SCH ×2 (08:00→21:15)
[2021-07-30] MEDS: APIXABAN 5 MG TABLET PO SCH ×2 (08:01→21:15)
[2021-07-30] MEDS: SODIUM CHLORIDE FLUSH 0.9% 10 ML SYRINGE IVP SCH ×3 (08:01→23:45)
[2021-07-30] MEDS: PRENATAL VITAMIN TABLET PO SCH (08:01)
[2021-07-30] MEDS: THIAMINE 100 MG TABLET PO SCH (08:01)
[2021-07-30] MEDS: cefTRIAXone 2 GM in SODIUM CHLORIDE 0.9% MINIBAG 100 ML IV SCH (08:08)
--- NOTE | 2021-07-30 08:09 | PROVIDER PROGRESS NOTE ---
Assessment/Plan - Problem List (1) Acute diastolic (congestive) heart failure Assessment/Plan: Patient presented to the hospital on 07/28/21 with dyspnea after one week of cold like symptoms including a cough and congestion. In the ED his bedside oxygen saturation was 81% on room air. He was then place on 5L/min nasal cannula and bedside oxygenation saturation improved to mid 90s. Chest x-ray showed " mild pulmonary edema versus chronic interstitial changes". Echo on 07/28/21 showed " mild left ventricle hypertorphy with EF 55-65%. Unable to determine diastolic function due to arrhythmia. Right ventricle enlargement, severe increased in left atrial volume index, and severe right atrial enlargement". There is no previous echo for comparison. These findings are consistent with diastolic left ventricular heart failure. He was was started on lasix on 07/29/21 and had 2 kg weight loss. Initial lactic acid was elevated to 3.6 and is now down to is 1.5. BNP is down to 250 from 308 on admission. He denies dyspena today and reports continued nasal drainage and productive cough. There is 2+ pitting edema to bilateral feet up to mid calf. Plan: Continue lasix 20mg IVP twice daily. Continue cardiac diet. Continue to monitor with telemetry. (2) Sleep apnea Assessment/Plan: Patient describes sleep apnea and being compliant with her CPAP machine for 10 years. This is the likely etiology of his pulmonary hypertension. Plan: Continue with his CPAP machine while here. (3) Cor pulmonale Assessment/Plan: Cardiac echo on 07/28/21 showed "Right ventricle enlargement and severe right atrial enlargement. Mild to moderate tricuspid regurgitation. Severe abnormal right heart pressure." The calculated PA pressure is 65mmHg. which is consistent with Cor Pulmonale. There is no previous echo for comparison. Plan: Continue lasix 20mg IVP twice daily. Continue cardiac diet. Continue to monitor with telemetry. (4) Acute bronchitis due to Rhinovirus Assessment/Plan: Patient presented to the hospital on 07/28/21 after 1 week of cold like symptoms that included a cough and congestion. Upon admission PCR was positive for Rhinovirus. He continues to have intermittent productive cough with green/ yellow secretions. Breaths sounds have right upper ronchi that improves with coughing. He is on room air with bedside oxygenation saturation high 90s and ambulated the halls on room air with oxygen saturation mid 90s. 07/28/21 chest x- ray showed pulmonary edema. Plan: Start oxymetazoline 2 sprays to each nostril twice daily for 3 days for congestion. Contineu Mucinex at 600mg PO twice daily and encourage PO hydration. (5) Afib Assessment/Plan: Patient has a history of A-fib. Upon admission to the hospital his heart rate was 90-100 in a-fib. He is unsure of home medication doses but confident that he takes Xarelto for A-fib. Metoprolol 25mg PO twice daily started on 07/28/21. Today he continues to be in afib with HR 80-90s. Plan: Continue Metoprolol 25mg PO twice daily. Continue Eliquis 5mg PO nightly due to limited hospital availability of Xarelto. (6) Alcohol abuse Assessment/Plan: Patient has a history of alcohol abuse and reported drinking 1 beer and 5 glasses of wine daily. He denies pervious episodes of alcohol withdrawal. CIWA scores have remained 0 during hospitalization. Librium 25mg PO twice daily is ordered but patient is refusing. Plan: Discontinue Librium. Continue to monitor for alcohol withdrawal for 72 hours with CIWA scoring. Continue with Thiamine and multivitamin. (7) Diabetes Assessment/Plan: Patient has a history of Type II DM and takes Metformin. Admission glucose was 205 with A1c 7.7. Plan: Monitor glucose before each meal and at bedtime. Continue sliding scale insulin for hyperglycemia. Continue cardiac carb control diet. (8) Hypokalemia Assessment/Plan: Patient is hypokalemic with serum potassium of 3.4 which is most likely secondary to lasix. Upon admission to the hospital his serum potassium was 4.1. Plan: Start potassium Chloride 40mEQ PO daily. BMP to monitor trend and treat as needed. (9) Elevated troponin Assessment/Plan: Patient had elevated troponin on admission at 42.6 with a repeat troponin 44.6 which is flat. He denies chest pain. EKG does not show ischemic changes. This elevation was likely due to his CHF. Plan: Continue to monitor for ischemic changes with telemetry. (10) HTN (hypertension) Assessment/Plan: Patient has history of hypertension and unsure of his home medications. He knows that he takes Lisinopril but unsure of the dose. Pharmacy was contacted who stated that patient uses [facility] mail order for prescriptions and will be unable to confirm with provider until Saturday. He was started on Metoprolol 25mg PO twice daily for A-fib on 07/28/21. Today his systolic blood pressure ranges 150s-160s. Plan: Resume home hypertension medication after it has been confirmed by pharmacy. Consider resuming Lisinopril at titrate as needed if hypertension uncontrolled. (11) Morbid obesity with BMI of 45.0-49.9, adult Assessment/Plan: Patient has a an elevated BMI of 46. He reported to pervious provider that he is working on loosing weight. Plan: Encourage activity now that dyspnea has improved. Continue Carb Controlled diet. Dietitian consult to discuss healthy eating strategies. (12) Hyponatremia Assessment/Plan: Bulimic hyponatremia i.e. from free water volume overload. Admission Na was 128 and it is 134 today. Plan: Continue with IV diuresis. Follow BMP daily No saline or salt will be added. - Current Meds Current Meds: Current Medications Generic Name Dose Route Start Last Admin Trade Name Razq PRN Reason Stop Dose Admin Apixaban 5 mg 07/29/21 21:00 07/29/21 20:10 Apixaban 5 Mg Tablet PO 5 mg BID ARJUN Administration Chlordiazepoxide HCl 25 mg 07/28/21 22:00 07/29/21 21:02 Chlordiazepoxide 25 Mg Capsule PO Not Given Q12H ARJUN Furosemide 20 mg 07/29/21 15:00 07/30/21 06:29 Furosemide 20 Mg/2 Ml Vial IVP 20 mg BIDDIURETIC ARJUN Administration Guaifenesin 600 mg 07/29/21 12:00 07/29/21 20:10 Guaifenesin 600 Mg Tablet PO 600 mg BID ARJUN Administration Guaifenesin 10 ml 07/29/21 21:37 07/29/21 21:55 Guaifenesin/Dextromethorphan 10 Ml Udc PO 10 ml Q6HR PRN Administration Cough Azithromycin 500 mg/ Sodium 250 mls @ 250 mls/hr 07/29/21 09:00 07/29/21 10:45 Chloride IV Infused DAILY ARJUN Infusion Ceftriaxone Sodium 2 gm/ 100 mls @ 200 mls/hr 07/29/21 10:00 07/29/21 11:40 Sodium Chloride IV Infused DAILY ARJUN Infusion Insulin Aspart 2 - 10 unit 07/28/21 17:00 07/30/21 07:52 Insulin Aspart 300 Unit/3 Ml Pen SUBQ 2 unit 0800,1200,1700,2100 ARJUN Administration Protocol Metoprolol Tartrate 25 mg 07/28/21 21:00 07/29/21 20:10 Metoprolol Tartrate 25 Mg Tablet PO 25 mg BID ARJUN Administration Pantoprazole Sodium 40 mg 07/29/21 07:00 07/30/21 06:27 Pantoprazole 40 Mg Tablet PO 40 mg QDAC ARJUN Administration Multivit/Folic Acid/Iron 1 tab 07/29/21 09:00 07/29/21 09:23 Vitamin Tablet PO 1 tab DAILY ARJUN Administration Saccharomyces Boulardii 250 mg 07/28/21 17:00 07/30/21 07:55 Saccharomyces Boulardii 250 Mg Capsule PO 250 mg BIDWM ARJUN Administration Sodium Chloride 10 ml 07/28/21 11:54 07/29/21 09:26 Sodium Chloride Flush 0.9% 10 Ml Syringe IVP 10 ml PRN PRN Administration NEEDED PER PROVIDER ORDERS Sodium Chloride 10 ml 07/28/21 17:00 07/29/21 23:45 Sodium Chloride Flush 0.9% 10 Ml Syringe IVP 10 ml 0100,0900,1700 ARJUN Administration Temazepam 15 mg 07/28/21 13:40 07/29/21 20:10 Temazepam 15 Mg Capsule PO 15 mg QPM PRN Administration Insomnia Thiamine HCl 100 mg 07/28/21 13:42 07/29/21 09:23 Thiamine 100 Mg Tablet PO 100 mg DAILY ARJUN Administration - Lab Result Fish Bone Diagrams: 07/31/21 04:39 07/31/21 04:39 Subjective - Subjective Patient Reports: Feeling Better, Resting Comfortably (Patient is sitting up in chair and reprots feeling better however he continues to have nasal congestion and strong productive cough.), Cough (congestion) Nursing Reports: No Complaints Objective Vital Signs: Vital Signs - 24 hr 07/29/21 07/29/21 07/29/21 09:23 13:44 13:45 Temperature Heart Rate [ Brachial] Heart Rate [ Monitoring electrodes] Heart Rate [ Radial] Respiratory Rate Blood Pressure 150/90 H Blood Pressure [Left Brachial artery] Blood Pressure [Right Brachial artery] Blood Pressure [Right Radial artery] O2 Saturation 96 92 07/29/21 07/29/21 07/29/21 14:15 15:47 20:07 Temperature 36.6 C 36.8 C 36.4 C L Heart Rate [ Brachial] Heart Rate [ 89 94 100 Monitoring electrodes] Heart Rate [ Radial] Respiratory 20 19 20 Rate Blood Pressure Blood Pressure 144/85 H 143/98 H 148/80 H [Left Brachial artery] Blood Pressure [Right Brachial artery] Blood Pressure [Right Radial artery] O2 Saturation 94 94 96 07/29/21 07/30/21 07/30/21 20:10 00:23 06:07 Temperature 36.5 C 36.3 C L Heart Rate [ Brachial] Heart Rate [ Monitoring electrodes] Heart Rate [ 91 92 Radial] Respiratory 21 20 Rate Blood Pressure 148/80 H Blood Pressure [Left Brachial artery] Blood Pressure [Right Brachial artery] Blood Pressure 140/80 H 143/90 H [Right Radial artery] O2 Saturation 94 94 07/30/21 07:33 Temperature 36.5 C Heart Rate [ 97 Brachial] Heart Rate [ Monitoring electrodes] Heart Rate [ Radial] Respiratory 20 Rate Blood Pressure Blood Pressure [Left Brachial artery] Blood Pressure 153/92 H [Right Brachial artery] Blood Pressure [Right Radial artery] O2 Saturation 97 Oxygen O2 Source Room air Oxygen Flow Rate 6 I&O (Last 24 Hrs): Intake and Output Totals x24h 07/28/21 07/29/21 07/30/21 23:59 23:59 23:59 Intake Total 1440 1670 150 Output Total 1305 2775 1815 Balance 135 -1105 -1665 General: Alert, Oriented x3, Cooperative, No acute distress HEENT: EOMI Neuro: Alert, Oriented Times 3 Cardiovascular: Other (Regularly irregular.) Respiratory: Chest non-tender, No respiratory distress, Other (Intermittent rhonchi on right upper lobe that improves with cough) Abdomen: Normal bowel sounds, Soft, No tenderness Extremities: No clubbing, No cyanosis, Other (2+ pitting pedal edema up to bilateral mid calf) Skin: No rashes - Results Results: Laboratory Results WBC 7.8 x10^3/uL (4.8-10.8) 07/30/21 05:02 RBC 4.29 10^6/uL (4.70-6.10) L 07/30/21 05:02 Hgb 14.2 g/dL (14.0-18.0) 07/30/21 05:02 Hct 40.9 % (42.0-52.0) L 07/30/21 05:02 MCV 95.3 fL (80.0-94.0) H 07/30/21 05:02 MCH 33.1 pg (27.0-31.0) H 07/30/21 05:02 MCHC 34.7 g/dL (32.0-36.0) 07/30/21 05:02 RDW 12.7 % (12.0-15.0) 07/30/21 05:02 Plt Count 225 10^3/uL (130-450) 07/30/21 05:02 MPV 9.7 fL (7.4-11.4) 07/30/21 05:02 Neut # (Auto) 5.7 10^3/uL (1.5-6.6) 07/30/21 05:02 Lymph # (Auto) 1.0 10^3/uL (1.5-3.5) L 07/30/21 05:02 Campbell # (Auto) 0.9 10^3/uL (0.0-1.0) 07/30/21 05:02 Eos # (Auto) 0.2 10^3/uL (0.0-0.7) 07/30/21 05:02 Baso # (Auto) 0.0 10^3/uL (0.0-0.1) 07/30/21 05:02 Absolute Nucleated RBC 0.00 x10^3/uL 07/30/21 05:02 Nucleated RBC % 0.0 /100WBC 07/30/21 05:02 VBG pH 7.387 (7.31-7.41) 07/28/21 10:25 VBG pCO2 38.4 mmHg (41-51) L 07/28/21 10:25 VBG pO2 56.1 mmHg (25-47) H 07/28/21 10:25 VBG HCO3 22.6 mmol/L (23-28) L 07/28/21 10:25 VBG Total CO2 23.7 mmol/L (24-29) L 07/28/21 10:25 VBG O2 Saturation 89.2 % (60-80) H 07/28/21 10:25 VBG Base Excess -2.0 mmol/L (-2 - +2) 07/28/21 10:25 Sodium 134 mmol/L (135-145) L 07/30/21 05:02 Potassium 3.4 mmol/L (3.5-5.0) L 07/30/21 05:02 Chloride 97 mmol/L (101-111) L 07/30/21 05:02 Carbon Dioxide 23 mmol/L (21-32) 07/30/21 05:02 Anion Gap 14.0 (6-13) H 07/30/21 05:02 BUN 16 mg/dL (6-20) 07/30/21 05:02 Creatinine 0.9 mg/dL (0.6-1.2) 07/30/21 05:02 Estimated GFR (MDRD) 83 (>89) L 07/30/21 05:02 Glucose 152 mg/dL (70-100) H 07/30/21 05:02 POC Whole Bld Glucose 157 mg/dL (70 - 100) H 07/30/21 07:27 Estimat Average Glucose 174 mg/dL (70-100) H 07/28/21 12:18 Hemoglobin A1c % 7.7 % (4.27-6.07) H 07/28/21 12:18 Lactic Acid 1.6 mmol/L (0.5-2.2) 07/28/21 19:10 Calcium 8.7 mg/dL (8.5-10.3) 07/30/21 05:02 Phosphorus 2.7 mg/dL (2.5-4.6) 07/28/21 10:25 Magnesium 1.6 mg/dL (1.7-2.8) L 07/29/21 04:39 Total Bilirubin 1.7 mg/dL (0.2-1.0) H 07/28/21 10:25 AST 31 IU/L (10-42) 07/28/21 10:25 ALT 30 IU/L (10-60) 07/28/21 10:25 Alkaline Phosphatase 50 IU/L (42-121) 07/28/21 10:25 Troponin I High Sens 44.2 ng/L (2.3-19.7) H* 07/28/21 16:06 B-Natriuretic Peptide 205 pg/mL (5-100) H 07/30/21 05:02 Total Protein 8.3 g/dL (6.7-8.2) H 07/28/21 10:25 Albumin 4.3 g/dL (3.2-5.5) 07/28/21 10:25 Globulin 4.0 g/dL (2.1-4.2) 07/28/21 10:25 Albumin/Globulin Ratio 1.1 (1.0-2.2) 07/28/21 10:25 Triglycerides 70 mg/dL (-149) 07/29/21 04:39 Cholesterol 133 mg/dL (-199) 07/29/21 04:39 LDL Cholesterol, Calc 61 mg/dL (-129) 07/29/21 04:39 VLDL Cholesterol 14 mg/dL 07/29/21 04:39 HDL Cholesterol 58 mg/dL (60-) L 07/29/21 04:39 LDL/HDL Ratio 1.1 (<3.6) 07/29/21 04:39 Cholesterol/HDL Ratio 2.3 (<5.0) 07/29/21 04:39 Nasal Adenovirus (PCR) NOT DETECTED 07/28/21 10:27 Nasal B. parapertussis DNA (PCR) NOT DETECTED 07/28/21 10:27 Nasal Coronavir 229E PCR NOT DETECTED 07/28/21 10:27 Nasal Coronavir HKU1 PCR NOT DETECTED 07/28/21 10:27 Nasal Coronavir NL63 PCR NOT DETECTED 07/28/21 10:27 Nasal Coronavir OC43 PCR NOT DETECTED 07/28/21 10:27 Nasal Enterovir/Rhinovir PCR DETECTED A 07/28/21 10:27 Nasal Influenza B PCR NOT DETECTED 07/28/21 10:27 Nasal Influenza A PCR NOT DETECTED 07/28/21 10:27 Nasal Parainfluen 1 PCR NOT DETECTED 07/28/21 10:27 Nasal Parainfluen 2 PCR NOT DETECTED 07/28/21 10:27 Nasal Parainfluen 3 PCR NOT DETECTED 07/28/21 10:27 Nasal Parainfluen 4 PCR NOT DETECTED 07/28/21 10:27 Nasal RSV (PCR) NOT DETECTED 07/28/21 10:27 Nasal B.pertussis DNA PCR NOT DETECTED 07/28/21 10:27 Nasal C.pneumoniae (PCR) NOT DETECTED 07/28/21 10:27 Rajeev Human Metapneumo PCR NOT DETECTED 02/25/22 10:27 Nasal M.pneumoniae (PCR) NOT DETECTED 07/28/21 10:27 Nasal SARS-CoV-2 (PCR) NOT DETECTED 07/28/21 10:27 ABX Reporting Has patient been on IV antibiotics over the past 48 hours?: No
[2021-07-30] MEDS: AZITHROMYCIN INJ 500 MG in SODIUM CHLORIDE 0.9% 250 ML IV SCH (09:25)
[2021-07-30] MEDS: chlordiazePOXIDE 25 MG CAPSULE PO SCH (10:29)
[2021-07-30] MEDS: polyethylene glycoL 3350 17 GM PACKET PO SCH (10:30)
[2021-07-30] MEDS: SODIUM CHLORIDE FLUSH 0.9% 10 ML SYRINGE IVP PRN (13:16)
[2021-07-30] MEDS: POTASSIUM CHLORIDE 20 MEQ TABLET PO SCH (15:49)
--- NOTE | 2021-07-30 18:39 | XRAY Report ---
PROCEDURE: Chest 1 View X-Ray INDICATIONS: F/U CHF vs pneumonia TECHNIQUE: One view of the chest was acquired. COMPARISON: July 28, 2021 FINDINGS: SUPPORT DEVICES: None. LUNGS/PLEURA: Improved aeration. No focal consolidation, pleural effusion or space-occupying pneumoth orax. MEDIASTINUM: The cardiomediastinal silhouette is within normal limits. BONES/SOFT TISSUES: No acute abnormality. IMPRESSION: 1.No acute cardiopulmonary abnormality. Reviewed by: Chris Jernigan MD on 07/30/2021 6:38 PM PST Approved by: Chris Jernigan MD on 07/30/2021 6:38 PM PST Station ID: [id number]
[2021-07-30] MEDS: OXYMETAZOLINE HCL 100 SPRAYS BOTTLE NAS SCH (19:22)
[2021-07-30] MEDS: DOCUSATE SODIUM 250 MG CAPSULE PO SCH (21:15)
[2021-07-30] MEDS: TEMAZEPAM 15 MG CAPSULE PO PRN (21:15)
[2021-07-30] MEDS: SENNA 8.6 MG TABLET PO SCH (21:15)
[2021-07-31 04:52] LABS: BASOPHILS # (AUTO) 0.1 10^3/uL (0.0-0.1); EOSINOPHILS # (AUTO) 0.3 10^3/uL (0.0-0.7); HCT - HEMATOCRIT 44.9 % (42.0-52.0); HGB - HEMOGLOBIN 15.4 g/dL (14.0-18.0); LYMPHOCYTES # (AUTO) 1.8 10^3/uL (1.5-3.5); LYMPHOCYTES % (AUTO) 21.5 %; MEAN CORPUSCULAR HEMOGLOBIN 32.9 pg (27.0-31.0); MEAN CORPUSCULAR HGB CONC 34.3 g/dL (32.0-36.0); MEAN CORPUSCULAR VOLUME 95.9 fL (80.0-94.0); MEAN PLATELET VOLUME 9.6 fL (7.4-11.4); MONOCYTES # (AUTO) 1.1 10^3/uL (0.0-1.0); MONOCYTES % (AUTO) 13.4 %; NEUTROPHILS # (AUTO) 5.1 10^3/uL (1.5-6.6); NEUTROPHILS % (AUTO) 60.6 %; PLT - PLATELET COUNT 258 10^3/uL (130-450); RED BLOOD COUNT 4.68 10^6/uL (4.70-6.10); RED CELL DISTRIBUTION WIDTH 12.8 % (12.0-15.0); WHITE BLOOD COUNT 8.4 x10^3/uL (4.8-10.8)
[2021-07-31 04:57] LABS: CALCIUM 9.1 mg/dL (8.5-10.3); POTASSIUM 3.7 mmol/L (3.5-5.0)
[2021-07-31] MEDS: PANTOPRAZOLE 40 MG TABLET PO SCH (05:39)
[2021-07-31] MEDS: FUROSEMIDE 20 MG/2 ML VIAL IVP SCH (05:44)
[2021-07-31] MEDS ORDERED: FUROSEMIDE 20 MG TABLET PO SCH (08:00)
[2021-07-31] MEDS: INSULIN ASPART 300 UNIT/3 ML PEN SUBQ SCH ×2 (08:09→11:45)
[2021-07-31] MEDS: PRENATAL VITAMIN TABLET PO SCH (08:11)
[2021-07-31] MEDS: SACCHAROMYCES BOULARDII 250 MG CAPSULE PO SCH (08:11)
[2021-07-31] MEDS: METOPROLOL TARTRATE 25 MG TABLET PO SCH (08:12)
[2021-07-31] MEDS: THIAMINE 100 MG TABLET PO SCH (08:15)
[2021-07-31] MEDS: DOCUSATE SODIUM 250 MG CAPSULE PO SCH (08:15)
[2021-07-31] MEDS: guaiFENesin 600 MG TABLET PO SCH (08:15)
[2021-07-31] MEDS: POTASSIUM CHLORIDE 20 MEQ TABLET PO SCH (08:15)
[2021-07-31] MEDS: APIXABAN 5 MG TABLET PO SCH (08:15)
[2021-07-31] MEDS: OXYMETAZOLINE HCL 100 SPRAYS BOTTLE NAS SCH (08:16)
[2021-07-31] MEDS: polyethylene glycoL 3350 17 GM PACKET PO SCH (08:16)
[2021-07-31] MEDS: SODIUM CHLORIDE FLUSH 0.9% 10 ML SYRINGE IVP SCH (08:26)
[2021-07-31] MEDS: SENNA 8.6 MG TABLET PO SCH (08:29)
[2021-07-31] MEDS ORDERED: ALBUTEROL 1 PUFF INH STA (09:01)
--- NOTE | 2021-07-31 10:20 | Discharge Plan ---
Discharge Plan Problem Reviewed?: Yes Diet: Diabetic (Low sodium and Low fat) Activity Restrictions: No Restrictions Shower Restrictions: No Driving Restrictions: No Weight Bearing: Full Weight No Smoking: If you smoke, Please STOP! Call for help. Disposition: 01 Home, Self Care Condition: Stable Prescriptions: Oxymetazoline HCl [Afrin] 2 spray NS BID PRN #15 ml PRN Reason: Nasal Congestion Potassium Chloride [K-Dur] 20 meq PO DAILY #30 tablet Furosemide [Lasix] 20 mg PO 0800 #30 tablet Instruction Topics: Heart Failure, Heart Failure Tracking Weight, Heart Failure Diet Changes, Cold Virus Health Concerns: You were hospitalized due to feeling short of breath and found to have diastolic heart failure and bronchitis from a common cold (Rhinovirus) infection. You were treated with a diuretic to remove fluid from your lungs. The ultrasound scan of your heart, called an Echocardiogram, showed that your right heart is enlarged and also your whole heart is stiff during the relaxation phase of pumping. Your heart is able to pump and eject blood well, with a recorded Ejection Fraction of 55-65%. Once the fluid from your lungs had decreased, you no longer needed oxygen and were able to walk around without feeling short of breath or having your oxygen levels drop. During your hospitalization you were also found to be positive for the Rhinovirus which is the common cold. This is a virus, so there is NO treatment except for symptom management. You can continue to use the Afrin nasal spray for nasal congestion twice daily and Mucinex twice daily to help loosen mucus. Continue to do cough and deep breathing exercises. The typical coarse of symptoms is 1-2 weeks. You did NOT have a pneumonia, but got iv antibiotics in case the bronchitis had a bacterial component, and you have finished a course of treatment while being here. Your diet should be low salt, no more than 2 grams/ day. Please remain on a low fat, diabetic diet too. Plan of Treatment: As above Care Goals: Improvement in symptoms and stabilization are the goals Assessment: The patient understands and is agreeable with the plan. Additional Instructions or Follow Up instructions: Please see your primary care provider in 1-4 weeks for a hospital follow-up visit. If you have new or worsening symptoms, call your PCP for advice or come to the ED.' Follow-up with: Naman Villegas MD [Primary Care Provider] -
--- NOTE | 2021-07-31 10:24 | DISCHARGE SUMMARY ---
Discharge Summary Admit Date: 07/28/21 Discharge Date: 07/31/21 Discharging Provider: Dr. Conklin Primary Care Provider: Dr. Naman Villegas Condition at Discharge: Stable Discharge Disposition: 01 Home, Self Care - DIAGNOSES Admission Diagnoses: (1) Respiratory failure hypoxia (2) CHF exacerbation (3) Elevated lactic acid level (4) Pneumonia (5) Shortness of breath (6) Afib (7) Alcohol abuse (8) Diabetes (9) HTN (hypertension) (10) Obesity (11) Elevated troponin - HPI History of Present Illness: Per [employer] [age]-year-old male with A past medical history significant noted for hypertension, hyperlipidemia, atrial fibrillation, diabetes who present ER complain of shortness of breath. Pt report he feel shortness of breath for couple of days. He has been sick with cough and difficult breathing for about one week. Initially he believed he had sinus congestion and sore throat. But he continue to have productive cough and yellowish sputum and worsening shortness of breath. He report he was difficult to walk to bathroom because of shortness of breath. He wanted to see his primary care, he is prescribed antibiotics to treat for his infection. He has been COVID vaccinated three times. He Had negative home covid test 2 days ago. Pt also report orthopnea. he report he was difficult to finish his ECHO study because of laying down at bed. pt report his bilateral leg present significant edema when he sit slight long time. Patient reported he taken Metformin for his diabetic management. Pt Denies fever, chill, chest pain. Patient report he stopped cigarette smoking about 30 years ago, he drink alcohol 1 beer and 4-5 glasses of wine daily. Patient is afebrile, but patient present tachypnea, tachycardia, with 81% oxygen saturation on room air in ER. In routine laboratory testing in ER, patient significantly has WBC 11.5, sodium 128, glucose 241, troponin 43, BNP 308. Chest x-ray review mild pulmonary edema plus chronic interstitial change. Discussed the care goal with the patient, patient hope to have full code. - HOSPITAL COURSE Hospital Course: (1) Acute diastolic (congestive) heart failure The patient presented to the hospital with progressive dyspnea a week of cold like symptoms including a cough and congestion. In the ED his bedside oxygen saturation was 81% on room air so he was place on 5L/min nasal cannula and his bedside oxygenation saturation improved to mid 90s. Chest x-ray showed " mild pulmonary edema versus chronic interstitial changes". Cardiac Echo during hospitalization showed " mild left ventricle hypertorphy with EF 55-65%. Unable to determine diastolic function due to arrhythmia. Right ventricle enlargement, severe increased in left atrial volume index, and severe right atrial enlargement". There is no previous echo for comparison. These findings are consistent with diastolic left ventricular heart failure. He was was started on lasix IV and had 7kg weight loss. His initial lactic acid was elevated to 3.6 and decreased to is 1.5. The BNP decreased to 250 from 308 on admission. He continued to have 2+ pitting edema to bilateral feet up to mid calf. He was instructed on a a low sodium diet and monitoring his weight. Upon discharge, he was prescribed Lasix 20mg PO daily. (2) Acute bronchitis due to Rhinovirus The patient presented to the hospital after 1 week of cold like symptoms that included a cough and congestion. Upon admission PCR was positive for Rhinovirus. He continued to have an intermittent productive cough with green/ yellow secretions. Breaths sounds throughout hospitalization had intermittent scattered ronchi that improved with coughing and deep breathing exercises. He was given antibiotics empirically that were discontinued prior to discharge. Oxygen desaturation study was completed and his saturations remained mid 90s with ambulation. He was prescribed Afrin 2 sprays per nostril twice daily for 2 additional days and instructed on symptom management. (3) Cor pulmonale The Cardiac Echo from this hospitalization showed "Right ventricle enlargement and severe right atrial enlargement. Mild to moderate tricuspid regurgitation. Severe abnormal right heart pressure." The calculated PA pressure is 65mmHg, which is consistent with Cor Pulmonale. There is no previous echo for comparison. He was prescribed Lasix 20mg PO daily, instructed on a low sodium diet upon discharge. (4) Sleep apnea The patient has a history of sleep apnea and reported being compliant with his CPAP machine for 10 years. This is the likely etiology of his pulmonary hypertension. He was instructed to continue with home CPAP at night. (5) Diabetes The patient has a history of Type II DM and takes Metformin. His admission glucose was 205 with A1c 7.7 and his glucose ranged 130s-205. He was managed with sliding scale insulin while hospitalized. His Metformin was resumed upon discharge. (6) Afib The patient has a history of A-fib. Upon admission to the hospital his heart rate was 90-100 in a-fib. He reported taking Xarelto but was unsure of dose. He was on Eliquis 5mg PO nightly while hospitalized due to Xarelto availabity. He was also started on Metoprolol 25mg PO twice daily for A-fib and hypertension while hospitalized. His heart rate was controlled afib with HR 80-90s. His Xarelto was resumed upon discharge. (7) Alcohol abuse The patient has a history of alcohol abuse and reported drinking 1 beer and 5 glasses of wine daily. He denied pervious episodes of alcohol withdrawal. CIWA scores remained 0 during hospitalization. Librium 25mg PO twice daily was ordered but he refused it during hospitalization. (8) Hypokalemia The patient was hypokalemic with serum potassium low of 3.3 during h ospitalization which was most likely secondary to lasix. He received potassium daily. He was started on Potassium 20mEq PO daily at discharge. (9) HTN (hypertension) The patient has a history of hypertension and was unsure of his home medications. He recalled taking Lisinopril but unsure of the dose. The pharmacist was unable to contact the [facility] to confirm because they were closed over the weekend. He was also complaining of a cough on admission so blood pressure was managed with Metoprolol 25mg PO twice daily. His systolic blood pressure ranged 150s-160s. (10) Morbid obesity with BMI of 45.0-49.9, adult The patient had a an elevated BMI of 46. He reported that he is working on loosing weight. He was encouraged to make healthy lifestyle choices with dietary changes and exercise as tolerated such as walking. (11) Elevated troponin Patient had an elevated troponin on admission at 42.6 with a repeat troponin of 44.6, which is flat. He denied chest pain and the EKG did not show ischemic changes. This elevation was likely due to his CHF. (12) Hyponatremia Assessment/Plan: Admission Na was 128 and normalized to 137 on day of discharge. He was given La six IV during hospitalization for CHF. His hyponatremia was most likely from free water volume overload. - ALLERGIES Allergies/Adverse Reactions: Allergies Allergy/AdvReac Type Severity Reaction Status Date / Time No Known Drug Allergies Allergy Verified 07/28/21 10:18 - MEDICATIONS Home Medications: Ambulatory Orders Medication Instructions Recorded Confirmed Lisinopril [Zestril] 07/29/21 Rivaroxaban [Xarelto] 20 mg PO QDDINNER 07/29/21 07/29/21 metFORMIN [Glucophage] 07/29/21 Furosemide [Lasix] 20 mg PO 0800 #30 tablet 07/31/21 Oxymetazoline HCl [Afrin] 2 spray NS BID PRN #15 ml 07/31/21 Potassium Chloride [K-Dur] 20 meq PO DAILY #30 tablet 07/31/21 - PHYSICAL EXAM AT DISCHARGE General Appearance: positive: No acute distress, Alert Respiratory: positive: Chest non-tender, No respiratory distress, Wheezes (Faint expiratory wheeze to right upper lobe), Other Cardiovascular: positive: Other (Regularly irregular) Peripheral Pulses: positive: 2+ (pedal edema bilaterally up to mid calf. Right > left) - LABS Result Diagrams: 07/31/21 04:39 07/31/21 04:39
[2021-07-31 12:37] VITALS: BP 140/79
== END 2021-07-31 12:48 | disposition home or self-care (01) | DRG 291 ==
LOC: ED 10:06 → MS2 11:54
PROVIDERS: ADMIT Nurse Practitioner Gerontology; ATTEND Internal Medicine
DX: I11.0 Hypertensive heart disease with heart failure (principal); I50.31 Acute diastolic (congestive) heart failure; J96.91 Respiratory failure, unspecified with hypoxia; J18.9 Pneumonia, unspecified organism; Z68.42 Body mass index [BMI] 45.0-49.9, adult; E87.1 Hypo-osmolality and hyponatremia; J20.6 Acute bronchitis due to rhinovirus; I27.81 Cor pulmonale (chronic); G47.30 Sleep apnea, unspecified; Z79.84 Long term (current) use of oral hypoglycemic drugs; F10.10 Alcohol abuse, uncomplicated; I48.91 Unspecified atrial fibrillation; Z79.01 Long term (current) use of anticoagulants; E87.6 Hypokalemia; E66.01 Morbid (severe) obesity due to excess calories; R77.8 Other specified abnormalities of plasma proteins; R74.02 Elevation of levels of lactic acid dehydrogenase [LDH]; E78.5 Hyperlipidemia, unspecified; Z20.822 Contact with and (suspected) exposure to COVID-19; Z87.891 Personal history of nicotine dependence; I27.20 Pulmonary hypertension, unspecified; E11.65 Type 2 diabetes mellitus with hyperglycemia
CPT/HCPCS: 0202U; 36415; 71045; 80048; 80053; 80061; 82803; 83036; 83605; 83735; 83880; 84100; 84484; 85025; 87040; 87205; 93005; 93306; 94640; 94664; 94761; 96374; 99285; 99291; A9270; 83721; 87070

== ENCOUNTER 2021-08-14 13:12 | Outpatient (CLI) | payer OTHER ==
[2021-08-14 19:59] LABS: CREATININE 1.2 mg/dL (0.6-1.2); POTASSIUM 4.2 mmol/L (3.5-5.0)
== END 2021-08-14 13:13 | disposition home or self-care (01) ==
LOC: LAB.S 13:12
PROVIDERS: ATTEND Family Medicine
DX: I50.32 Chronic diastolic (congestive) heart failure (principal)
CPT/HCPCS: 36415; 80048

== ENCOUNTER 2021-12-06 12:26 | Outpatient (CLI) | payer MEDICARE, OTHER ==
[2021-12-06 13:58] LABS: BILIRUBIN,URINE NEGATIVE (NEGATIVE); GLUCOSE, URINE (UA) 250 mg/dL (NEGATIVE); KETONES,URINE (UA) NEGATIVE (NEGATIVE); LEUKOCYTE ESTERASE, URINE NEGATIVE (NEGATIVE); NITRITE,URINE NEGATIVE (NEGATIVE); OCCULT BLOOD,URINE NEGATIVE (NEGATIVE); PROTEIN,URINE 100 mg/dL (NEGATIVE); UROBILINOGEN,URINE 0.2 (NORMAL) E.U./dL (NORMAL)
[2021-12-06 14:07] LABS: CLARITY,URINE CLEAR (CLEAR)
[2021-12-06 14:15] LABS: BACTERIA,URINE Few /HPF (None Seen); RBC,URINE 0-5 /HPF (0-5); SQUAMOUS EPITHELIAL CELL,UR FEW Squamous (<= Few); WBC,URINE 0-3 /HPF (0-3)
== END 2021-12-06 12:27 | disposition home or self-care (01) ==
LOC: LAB 12:26
PROVIDERS: ATTEND Urology
DX: Z01.812 Encounter for preprocedural laboratory examination (principal)
CPT/HCPCS: 81001; 87086

== ENCOUNTER 2022-01-26 11:55 | Outpatient (CLI) | payer MEDICARE, OTHER ==
--- NOTE | 2022-01-26 16:28 | XRAY Report ---
PROCEDURE: Chest 2 View X-Ray INDICATIONS: DYSPNEA TECHNIQUE: 2 view(s) of the chest. COMPARISON: CXR 07/30/2021, 07/28/2021. FINDINGS: Surgical changes and devices: None. Lungs and pleura: No pleural effusions or pneumothorax. No consolidation. Prominent pulmonary markin gs. Mediastinum: Mediastinal contours are unchanged. Heart size is at the upper limits of normal. Bones and chest wall: No suspicious bony abnormalities. Soft tissues appear unremarkable. IMPRESSION: Possible pulmonary vasculature engorgement or interstitial lung disease. Further evaluation with CT chest could be considered if clinically indicated. Reviewed by: Rudolph Hoyos MD on 01/26/2022 4:27 PM PDT Approved by: Rudolph Hoyos MD on 01/26/2022 4:27 PM PDT Station ID: [id number]
== END 2022-01-26 11:56 | disposition home or self-care (01) ==
LOC: DI.S 11:55
PROVIDERS: ATTEND Nurse Practitioner Family
DX: R06.09 Other forms of dyspnea (principal)

== ENCOUNTER 2022-08-15 13:47 | Outpatient (CLI) | payer MEDICARE, OTHER ==
[2022-08-15 20:36] LABS: CALCIUM 9.4 mg/dL (8.5-10.3); POTASSIUM 4.2 mmol/L (3.5-5.0)
== END 2022-08-15 13:48 | disposition home or self-care (01) ==
LOC: LAB.S 13:47
PROVIDERS: ATTEND Physician Assistant Medical
DX: I50.30 Unspecified diastolic (congestive) heart failure (principal); N18.31 Chronic kidney disease, stage 3a
CPT/HCPCS: 36415; 80048

== ENCOUNTER 2022-08-22 11:33 | Emergency (ER) | payer MEDICARE, OTHER ==
[2022-08-22 11:57] VITALS: BP 150/91
--- NOTE | 2022-08-22 12:27 | XRAY Report ---
PROCEDURE: Knee 4 View LT INDICATIONS: Trauma TECHNIQUE: 4 views of the left knee(s) were acquired. COMPARISON: None. FINDINGS: Bones: No fractures or dislocations. Ilbd-ol-lldnfoht tricompartmental osteoarthritis is seen most notably in medial femoral tibial compartment. No significant patellar subluxation. No suspicious bony lesions. Soft tissues: Moderate to large suprapatellar joint effusion is noted. No suspicious soft tissue salma cifications. IMPRESSION: 1. No acute left knee fracture or dislocation. Moderate to large joint effusion. 2. Mild to moderate tricompartmental osteoarthritis most notably in medial femoral tibial compartment . Reviewed by: Nito Hedrick MD on 08/22/2022 11:25 AM JO Approved by: Nito Hedrick MD on 08/22/2022 11:25 AM JO Station ID: [id number]
--- NOTE | 2022-08-22 13:32 | ED Physician Documentation ---
History of Present Illness - Stated complaint Stated Complaint: L KNEE PX - Chief complaint Chief Complaint: Ext Problem - History obtained from History obtained from: Patient - History of Present Illness Timing: How many days ago (3) Pain level max: 3 Pain level now: 0 - Additonal information Additional information: 72-year-old male presents to the emergency department with left knee pain. He states he usually walks about a half a mile a day on his treadmill. He is states that he has had some pain with walking over the past several days, has not taken anything for pain. He feels the knee is mildly swollen. Denies any other trauma. Worse with movement, better with rest. He states he has no pain currently Review of Systems Constitutional: denies: Fever Skin: denies: Rash PD PAST MEDICAL HISTORY - Past Medical History Past Medical History: Yes Cardiovascular: Hypertension, High cholesterol, Atrial fibrillation Respiratory: None Neuro: None Endocrine/Autoimmune: Type 2 diabetes GI: None : None HEENT: None Psych: None Musculoskeletal: None Derm: None - Past Surgical History Past Surgical History: Yes Ortho: Knee replacement, Carpal Tunnel surgery - Present Medications Home Medications: Ambulatory Orders Medication Instructions Recorded Confirmed Lisinopril [Zestril] 40 mg PO DAILY 07/29/21 Rivaroxaban [Xarelto] 20 mg PO QDDINNER 07/29/21 07/29/21 metFORMIN [Glucophage] 500 mg PO DAILY 07/29/21 Oxymetazoline HCl [Afrin] 2 spray NS BID PRN #15 ml 07/31/21 Potassium Chloride [K-Dur] 20 meq PO DAILY #30 tablet 07/31/21 Diclofenac Sodium 1% Gel [Voltaren 4 gm TOP QID PRN #1 each 08/22/22 Gel] Furosemide [Lasix] 40 mg PO 0800 08/22/22 - Allergies Allergies/Adverse Reactions: Allergies Allergy/AdvReac Type Severity Reaction Status Date / Time No Known Drug Allergies Allergy Verified 08/22/22 11:57 - Social History Does the pt smoke?: No Smoking Status: Never smoker Does the pt drink ETOH?: No Does the pt have substance abuse?: No - Immunizations Immunizations are current?: Yes - POLST Patient has POLST: No PD ED PE NORMAL - Vitals Vital signs reviewed: Yes - General General: Alert and oriented X 3, No acute distress - Derm Derm: Warm and dry - Extremities Extremities: Other (L knee - Small joint effusion clinically. No tenderness along the tibial plateau. ACL, MCL, PCL, LCL are intact. Unable to fully tolerate meniscus testing secondary to pain and swelling. Neurovascular intact. Otherwise normal examination of the left leg. No skin changes) - Neuro Neuro: Alert and oriented X 3 Results - Vitals Vitals: Vital Signs - 24 hr 08/22/22 08/22/22 08/22/22 11:53 12:19 12:49 Temperature 36.6 C Heart Rate 78 Respiratory 14 16 16 Rate Blood Pressure 150/91 H O2 Saturation 98 08/22/22 08/22/22 13:20 13:28 Temperature Heart Rate Respiratory 16 17 Rate Blood Pressure O2 Saturation Oxygen O2 Source Room air - Rads (name of study) Left knee x-ray Relevant Findings:: Final report received, See rad report PD Medical Decision Making - ED course Complexity details: reviewed results, re-evaluated patient, considered differential, d/w patient ED course: 72-year-old male with left knee pain. X-ray shows a moderate to large joint effusion, no acute fracture or dislocation. Has mild to moderate tricompartmental osteoarthritis. Patient has a compressive brace at home that he will use. Declines any assistive walking devices. We will place him on topical Voltaren gel and have him follow-up with his doctor for further care and reevaluation when the swelling is decreased. Patient counseled regarding signs and symptoms for which I believe and urgent re-evaluation would be necessary. Patient with good understanding of and agreement to plan and is comfortable going home at this time This document was made in part using voice recognition software. While efforts are made to proofread this document, sound alike and grammatical errors may occur. Departure - Departure Disposition: Home, Self Care Clinical Impression: Arthritis of knee, left, Knee effusion, left Condition: Good Instructions: ED Effusion Knee Follow-Up: your,doctor in 1 week [Other] Prescriptions: Diclofenac Sodium 1% Gel [Voltaren Gel] 4 gm TOP QID PRN #1 each PRN Reason: knee pain Comments: Your prescription was sent to [email or web address] in [place]. I would recommend wearing a compressive brace on the knee, ice, elevate and rest when possible. Follow-up with your doctor for further care. Your x-ray does show a joint effusion and osteoarthritis. When the swelling has decreased, your doctor will likely want to reexamine your knee to check the cartilage in your knee called the meniscus to see if this shows any evidence of injury. Discharge Date/Time: 08/22/22 13:35
== END 2022-08-22 13:35 | disposition home or self-care (01) ==
LOC: ED 11:33
DX: M17.12 Unilateral primary osteoarthritis, left knee (principal); M25.462 Effusion, left knee; I10 Essential (primary) hypertension; E11.9 Type 2 diabetes mellitus without complications; Z79.84 Long term (current) use of oral hypoglycemic drugs; I48.91 Unspecified atrial fibrillation; Z79.01 Long term (current) use of anticoagulants
CPT/HCPCS: 99283

== ENCOUNTER 2022-08-28 11:33 | Outpatient (CLI) | payer MEDICARE, OTHER ==
[2022-08-28 15:38] LABS: CALCIUM 9.1 mg/dL (8.5-10.3); CREATININE 1.7 mg/dL (0.6-1.2); POTASSIUM 4.1 mmol/L (3.5-5.0)
== END 2022-08-28 11:34 | disposition home or self-care (01) ==
LOC: LAB.S 11:33
DX: I50.30 Unspecified diastolic (congestive) heart failure (principal)
CPT/HCPCS: 36415; 80048

== ENCOUNTER 2023-01-03 13:04 | Outpatient (CLI) | payer OTHER ==
[2023-01-03 20:31] LABS: HCT - HEMATOCRIT 46.8 % (42.0-52.0); HGB - HEMOGLOBIN 15.6 g/dL (14.0-18.0); MEAN CORPUSCULAR HEMOGLOBIN 32.8 pg (27.0-31.0); MEAN CORPUSCULAR HGB CONC 33.3 g/dL (32.0-36.0); MEAN CORPUSCULAR VOLUME 98.5 fL (80.0-94.0); RED BLOOD COUNT 4.75 10^6/uL (4.70-6.10); RED CELL DISTRIBUTION WIDTH 13.7 % (12.0-15.0); WHITE BLOOD COUNT 8.5 x10^3/uL (4.8-10.8)
[2023-01-03 20:46] LABS: ALBUMIN 4.2 g/dL (3.2-5.5); CALCIUM 9.7 mg/dL (8.5-10.3); CREATININE 1.9 mg/dL (0.6-1.3); PHOSPHORUS 3.1 mg/dL (3.7-7.2)
[2023-01-03 21:10] LABS: URIC ACID 8.5 mg/dL (2.6-7.2)
[2023-01-05 03:10] LABS: COMPLEMENT C3 120 mg/dL (82-167); COMPLEMENT C4 22 mg/dL (12-38)
[2023-01-05 17:08] LABS: KAPPA FREE LT CHAINS SERUM 72.2 mg/L (3.3-19.4); KAPPA/LAMBDA RATIO SERUM 1.21 (0.26-1.65); LAMBDA FREE LT CHAINS SERUM 59.8 mg/L (5.7-26.3)
[2023-01-08 15:09] LABS: A/G RATIO 1.2 (0.7-1.7); ALBUMIN 3.8 g/dL (2.9-4.4); ALPHA-1-GLOBULIN 0.2 g/dL (0.0-0.4); ALPHA-2-GLOBULIN 0.9 g/dL (0.4-1.0); GAMMA GLOBULIN 1.2 g/dL (0.4-1.8); GLOBULIN TOTAL 3.3 g/dL (2.2-3.9); IMMUNOGLOBULIN A (IGA) 423 mg/dL (61-437); IMMUNOGLOBULIN G (IGG) 1108 mg/dL (603-1613); IMMUNOGLOBULIN M (IGM) 124 mg/dL (15-143); M-SPIKE Not Observed g/dL (Not Observed); PROTEIN TOTAL 7.1 g/dL (6.0-8.5)
== END 2023-01-03 13:05 | disposition home or self-care (01) ==
LOC: LAB.S 13:04
PROVIDERS: ATTEND Internal Medicine Nephrology
DX: N18.32 Chronic kidney disease, stage 3b (principal); Z90.5 Acquired absence of kidney
CPT/HCPCS: 36415; 80069; 82550; 82570; 82784; 83521; 83970; 84155; 84156; 84165; 84550; 85027; 86160; 86334

== ENCOUNTER 2023-03-05 12:08 | Outpatient (CLI) | payer OTHER | END 2023-03-05 12:09 | disposition home or self-care (01) | LOC: DI 12:08 | PROVIDERS: ATTEND Thoracic Surgery (Cardiothoracic Vascular Surgery) | DX: I50.30 Unspecified diastolic (congestive) heart failure (principal); I27.20 Pulmonary hypertension, unspecified; I51.7 Cardiomegaly; I48.91 Unspecified atrial fibrillation | CPT/HCPCS: 93306 ==